=== PATIENT | male | born 1950 | race Caucasian/White ===

== ENCOUNTER 2019-01-12 13:40 | Inpatient (IN) ==
[2019-01-12] MEDS ORDERED: *HR* Ticagrelor 90 MG TABLET PO ONE (13:44)
--- NOTE | 2019-01-12 13:44 | Emergency Department Note ---
Disposition Clinical Impression: STEMI (ST elevation myocardial infarction) Qualifiers: Involved coronary artery: unspecified coronary artery Qualified Code(s): I21.3 - ST elevation (STEMI) myocardial infarction of unspecified site Disposition: Admitted As Inpatient Condition: Good Time of Disposition: 14:09 (Dr. Seymour accepted; taken to assistant laboratory director) Chest Pain HPI - General Chief Complaint: ED Chest Pain Stated Complaint: stemi alert Time Seen by Provider: 01/12/19 13:44 Source: patient Mode of arrival: ambulatory Limitations: no limitations Vital Signs Reviewed: Yes Nursing Notes Reviewed: Yes - History of Present Illness HPI Narrative: Patient is a 68-year-old male with past medical history of hypertension, kidney stones. Presents today due to STEMI. We received a prehospital EKG that showed inferior STEMI criteria. STEMI alert was called at approximately 13:25 before patient came to the ED. Upon arrival, patient states that he started having chest pain while walking about an hour ago. He describes as a pressure in the center of his chest associated with some mild shortness of breath. Walking made it worse. Denies any nausea, vomiting, sweating or fevers, abdominal pain. Denies any history of any previous MS or stent placement. He received 4 baby aspirin prior to arrival in 4 mg of morphine. Currently rates his pain a 4 or 5 out of 10. It was a 10 out of 10 prior to receiving morphine. - Related Data Previous Rx's Medication Instructions Recorded Clindamycin [Cleocin] 300 mg PO Q8HR #6 capsule 07/07/15 OxyCODONE Immed Rel [Roxicodone 5 5 - 10 mg PO Q6HR PRN #30 tablet 07/07/15 MG] Allergies Allergy/AdvReac Type Severity Reaction Status Date / Time No Known Allergies Allergy Unverified 07/06/15 14:23 All systems ED: reviewed and negative except as stated. Constitutional: Denies: fever Cardiovascular: Reports: chest pain Respiratory: Reports: dyspnea. Denies: cough, sputum production Gastrointestinal: Denies: abdominal pain, nausea Genitourinary: Denies: urgency, dysuria Integumentary: Denies: rash Chest Pain PMH - Past Medical History Medical history: Reports: hypertension, kidney stones Psychiatric history: Reports: no psych history - Social History Smoking Status: Never smoker Alcohol use: Reports: none Drug use: Reports: none Physical Exam - General Limitations: no limitations General appearance: alert, in no apparent distress - Head Head exam: atraumatic, normocephalic, normal inspection - Eye Eye exam: Present: normal appearance, PERRL, EOMI - ENT ENT exam: normal exam, normal oropharynx, mucous membranes moist - Neck Neck exam: Present: normal inspection, full ROM, trachea midline - Chest Chest inspection: Present: normal inspection, symmetric chest wall rise - Respiratory Respiratory exam: Present: normal lung sounds bilaterally. Absent: respiratory distress, wheezes, accessory muscle use - Cardiovascular Cardiovascular exam: Present: regular rate, normal rhythm, normal heart sounds - Abdominal Exam Abdominal exam: Present: soft, Non-Tender. Absent: tenderness, distention, guarding, rebound, rigidity - Extremities Exam Extremities exam: Present: normal inspection, full ROM. Absent: tenderness, pedal edema - Neurological Exam Neurological exam: Present: alert, oriented X3 - Psychiatric Psychiatric exam: Present: normal affect, normal mood - Skin Skin exam: Present: warm, dry, intact, normal color Course Course Narrative: Patient arrived in no acute distress. He is having some discomfort rated a 5 out of 10. We will give patient that now. He already received 4 baby aspirin prior to arrival. I spoke with Dr. Seymour, chute operator on-call prior to patient arrival, discussed inferior stemi seen on EKG. He requested brilinta and heparin bolus. Senior Economist was activated prior to patient arriving. Patient is currently stable on arrival. Pressure stable. Placed on pads and monitoring. We will avoid any nitroglycerin due to inferior STEMI. Currently waiting for Senior Economist to coming to patient. Of note, patient states that he was scheduled for procedure tomorrow for possible kidney stone removal. This will need to be discussed by admitting team once he is admitted for further managemen t. Vital Signs Temperature 97.9 F 01/12/19 13:46 Pulse Rate 84 01/12/19 13:46 Respiratory Rate 16 01/12/19 13:46 Blood Pressure 132/96 01/12/19 13:46 O2 Sat by Pulse Oximetry 96 01/12/19 13:46 Temperature 97.9 F 01/12/19 13:52 Pulse Rate 73 01/12/19 14:04 Respiratory Rate 16 01/12/19 14:04 Blood Pressure 126/87 01/12/19 14:04 O2 Sat by Pulse Oximetry 99 01/12/19 14:04 Oxygen Delivery Oxygen Delivery Room Air Chest Pain - MDM Narrative Medical decision making narrative: Patient arrived in no acute distress. He is having some discomfort rated a 5 out of 10. We will give patient that now. He already received 4 baby aspirin prior to arrival. I spoke with Dr. Seymour, chute operator on-call prior to patient arrival, discussed inferior stemi seen on EKG. He requested brilinta and heparin bolus. Senior Economist was activated prior to patient arriving. Patient is currently stable on arrival. Pressure stable. Placed on pads and m onitoring. We will avoid any nitroglycerin due to inferior STEMI. Currently waiting for Senior Economist to coming to patient. Of note, patient states that he was scheduled for procedure tomorrow for possible kidney stone removal. This will need to be discussed by admitting team once he is admitted for further management. - Medical Records Medical records reviewed: Yes I reviewed the patient's medical records. - Lab Data Lab results reviewed: Yes I reviewed the patient's lab results. Result diagrams: 01/12/19 13:45 01/12/19 13:45 Lab Results 01/12/19 Range/Units 13:45 WBC 6.8 (4.3-11.1) K/mcL RBC 5.38 (4.19-5.50) M/mcL Hgb 15.6 (12.9-16.9) g/dL Hct 47.4 (37.5-50.1) % MCV 88.1 (83.0-100.0) fL MCH 29.0 (28.0-33.3) pg MCHC 32.9 (31.6-35.5) g/dL RDW 13.4 (11.5-14.5) % Plt Count 185 (140-400) K/mcL MPV 9.6 (9.4-12.4) fL Immature Gran % 0.3 (0-4) % Seg Neutrophils % 42.6 % Lymphocytes % 39.5 % Monocytes % 11.6 % Eosinophils % 5.0 % Basophils % 1.0 % Neutrophils # 2.9 (1.6-8.9) K/mcL Lymphocytes # 2.7 (0.6-4.6) K/mcL Monocytes # 0.8 (0.0-1.3) K/mcL Eosinophils # 0.3 (0.0-0.6) K/mcL Basophils # 0.1 (0.0-0.2) K/mcL - Radiology Data Radiology results reviewed: Yes I reviewed the patient's radiology results. - EKG Data EKG attestation: Yes I reviewed and interpreted this EKG. EKG results narrative: Prehospital EKG. 01/12/2019 at 13:18. Sinus rhythm. Rate 86. RI 0.[address] elevation in 2, 3, aVF with reciprocal depressions in 1, aVL. STEMI, inferior. EKG #1 and ED. 01/12/2019 at 13:46. Sinus rhythm. Rate 91. RI 180. QS 1:15. QTc 450. ST elevation in 2, 3, aVF with ST depression in lead 1, aVL. STEMI criteria, inferior STEMI. Critical Care Time Critical Care Time: Yes Total Critical Care Time: 30 Attestation: Critical care time 30 minutes managing patient's STEMI. Attestation Statement - Attestation Attestation: Patient was seen with resident physician. I reviewed the history, physical, assessment and plan, and agree with the findings. I also personally evaluated this patient and had [id number] time with this patient. 68-year-old male presents to the emergency department with a STEMI. STEMI was called based on prehospital EKG done via EMS. Showed an inferior infarct. Upon arrival the patient stated that an hour so ago he developed chest pain. He has history of chest pain stents or cardiac issues. Pain developed as a pressure in the middle of his chest while walking. Walking made it worse resting relieved a little bit. He said it was a 10 out of 10. EMSs arrival. He received 4 aspirin and 4 mg of morphine which she said made his pain a 4-5 out of 10. He still having some pain no diaphoresis no sweating no nausea or vomiting. Review of systems as above remainder negative. Physical exam vital signs initially were stable. ENT is unremarkable. Heart regular rhythm and rate. Lungs clear. Abdomen soft nontender. Extremities unremarkable. Neurologically intact. Skin no rashes. Psych normal. ED course. Initial EKG from EMS showed STEMI. Repeat EKGs showed what appeared to be an evolving STEMI with more ST segment elevation in the inferior leads. We contacted interventional cardiology prior to the patient's arrival. Upon arrival he was given heparin and brilenta. Appropriate IVs were placed. And the patient was prepared for the Senior Economist. He went to the Senior Economist shortly thereafter for definitive management of his STEMI. Critical care time for this case was 30 minutes. I agree with the resident physician assessment and plan.
[2019-01-12] MEDS ORDERED: *HR* FentaNYL (PF) 100 MCG/2 ML VIAL IVP ONE (13:45)
[2019-01-12] MEDS ORDERED: Heparin 1,000 UNITS/500 mL 500 ML ONE ×2 (13:45→15:39)
[2019-01-12] MEDS ORDERED: Nitroglycerin 1,000 MCG/10 ML VIAL IV ONE (13:45)
[2019-01-12] MEDS ORDERED: *HR* Heparin 10,000 UNIT/10 ML VIAL ONE (13:45)
[2019-01-12] MEDS ORDERED: 0.9 % Sodium Chloride 1,000 ML ONE ×2 (13:45→13:46)
[2019-01-12] MEDS ORDERED: ISOVUE-370 100 ML INFUS..BTL ONE ×3 (13:46→15:58)
[2019-01-12] MEDS ORDERED: *HR* Heparin 5,000 UNIT/ML VIAL IVP ONE (13:49)
[2019-01-12] MEDS ORDERED: *HR* Heparin 5,000 UNIT/ML VIAL IVP PRN ×2 (13:49)
[2019-01-12] MEDS ORDERED: Verapamil 5 MG/2 ML VIAL ONE (13:54)
[2019-01-12 14:00] LABS: Basophils # 0.1 K/mcL (0.0-0.2); Eosinophils # 0.3 K/mcL (0.0-0.6); Hematocrit 47.4 % (37.5-50.1); Hemoglobin 15.6 g/dL (12.9-16.9); Immature Granulocytes % 0.3 % (0-4); Lymphocytes # 2.7 K/mcL (0.6-4.6); Lymphocytes % 39.5 %; Mean Corpuscular HGB Conc 32.9 g/dL (31.6-35.5); Mean Corpuscular Volume 88.1 fL (83.0-100.0); Mean Platelet Volume 9.6 fL (9.4-12.4); Monocytes # 0.8 K/mcL (0.0-1.3); Monocytes % 11.6 %; Neutrophils # 2.9 K/mcL (1.6-8.9); Platelet Count 185 K/mcL (140-400); Red Blood Count 5.38 M/mcL (4.19-5.50); Red Cell Distribution Width 13.4 % (11.5-14.5); Segmented Neutrophils % 42.6 %
[2019-01-12] MEDS ORDERED: Heparin 25,000 UNIT/250 ML D5W 25,000 UNIT/250 ML IV.SOLN IVC SCH (14:00)
[2019-01-12 14:09] LABS: Activated Partial Thrombo Time 27.7 Seconds (26.0-36.0)
--- NOTE | 2019-01-12 14:13 | Pre-Sedation Evaluation ---
Pre-sedation evaluation - Pre-sedation checklist Date of procedure: 01/12/19 Procedure: [facility] Recent Vitals: Last Vital Signs Temp 97.9 F 01/12/19 13:52 Pulse 73 01/12/19 14:07 Resp 16 01/12/19 14:07 BP 105/77 01/12/19 14:07 Pulse Ox 99 01/12/19 14:11 H&P (including ROS) documented in medical record: Yes Previous reaction to sedatives/anesthetics: Unknown Dietary Status: unknown Airway Assessment: Patient can open mouth completely, TMJ function normal ASA Classification *see protocol: CLASS IV-Severe systemic disease/constant threat to pt's life, [id number] to any of the above to indicate emergent Plan of Care: Pt appropriate candidate for procedure/moderate/conscious sedation, Risks/benefits of procedure/sedation discussed w/ patient/family, If not NPO; Risk of intake outweiged by necessity to perform procedure Cardiac Registry (Cardio Only) - Functional Capacity Functional Capacity: >=4 METS with symptoms - Clincal Frailty Scale Clinical Frailty Scale: Managing Well
[2019-01-12] MEDS ORDERED: Ondansetron 4 MG/2 ML VIAL IVP PRN (14:14)
[2019-01-12] MEDS ORDERED: *HR* Morphine 2 MG/ML SYRINGE IVP PRN (14:14)
--- NOTE | 2019-01-12 14:14 | Cardiology History & Physical ---
Date of Encounter: 01/13/19 Time of Encounter: 14:00 Assessment and Plan (1) STEMI (ST elevation myocardial infarction) Current Visit: Yes Status: Acute A/R/B of emergent [facility] dw patient. Pt aware and agreeable with proceeding understanding 1% chance of recurrent PA//CVA/CABG/ADAN/bleeding. EF assessment will be completed. Aspirin, brilinta, heparin. Cardiac rehab. The assessment and plan as outlined above was discussed with the patient and/or family members who expressed understanding and agreement. All questions were answered. Qualifiers: Involved coronary artery: other inferior wall coronary artery Qualified Code(s): I21.19 - ST elevation (STEMI) myocardial infarction involving other coronary artery of inferior wall (2) Nephrolithiasis Current Visit: Yes Status: Acute will dw urology. The assessment and plan as outlined above was discussed with the patient and/or family members who expressed understanding and agreement. All questions were answered. History of Present Illness HPI: Mr. Palacio is a 68 year old male with no previous cardiac history here with retrosternal chest discomfort of ~1-2 hour duration not markedly improved with aspirin/NTG. EKG shows inferior current of injury. Also of note, he has a large nephrolithiasis and large left inguinal hernia with plans for operative management. Past Med Surg Social Fam HX - Past Medical History Medical history: hypertension, kidney stones Psychiatric history: no psych history - Past Surgical History Additional surgical history: Back surgery - Social History Smoking Status: Never smoker Smokeless Tobacco Status: No Alcohol use: none Drug use: none Medications and Allergies Aspirin [Lo-Dose Aspirin EC] 81 mg PO DAILY 01/12/19 [History] Lisinopril-HCTZ 10-12.5 [Prinzide 10-12.5] 1 each PO DAILY 01/12/19 [History] Triamcinolone Acetonide 15 gm TP DAILY PRN 01/12/19 [History] Allergy/AdvReac Type Severity Reaction Status Date / Time No Known Allergies Allergy Unverified 07/06/15 14:23 All Systems Review: The remainder of the systems were reviewed and are negative - Constitutional Constitutional: no chills, no fever(s) - EENT Eyes: no blurred vision, no loss of vision Nose, mouth and throat: no bleeding gums, no epistaxis - Cardiovascular Cardiovascular: chest pain at rest, chest pain with exertion - Respiratory Respiratory: no hemoptysis, no wheezing - Gastrointestinal Gastrointestinal: no hematemesis, no hematochezia - Genitourinary Genitourinary: no hematuria, no nocturia - Musculoskeletal Musculoskeletal: no muscle cramps, no muscle weakness - Integumentary Integumentary: no rash, no unusual bruising - Neurological Neurological: no syncope, no tingling - Psychiatric Psychiatric: no hallucinations, no panic attacks - Hematological/Lymphatic Hematologic/Lymphatic: no easy bleeding, no easy bruising Physical Examination Vital Signs, Last 4 Hours Temp Pulse Resp BP Pulse Ox 01/12/19 14:11 99 01/12/19 14:07 73 16 105/77 99 01/12/19 14:04 73 16 126/87 99 01/12/19 13:56 86 16 134/87 100 01/12/19 13:52 97.9 F 90 23 139/102 98 01/12/19 13:46 97.9 F 84 16 132/96 96 General: Conversant, Other (distressed) HEENT: Atraumatic Neck: No JVD Cardiac: Reg Rate and Rhythm Lungs: Normal Breath Sounds Neuro: Alert and responsive Abdomen: Soft Skin: No rashes noted on visualized skin Musculoskeletal: No Chest Wall Tenderness Extremities: No Edema Results 01/13/19 04:30 01/13/19 04:30 Lab Results 01/12/19 01/12/19 13:45 13:45 WBC 6.8 Hgb 15.6 Hct 47.4 Plt Count 185 INR 1.0 APTT 27.7 - EKG Interpretation EKG results cardiology: personally reviewed (inferior current on injury)
[2019-01-12] MEDS ORDERED: Ondansetron 4 MG/2 ML VIAL ONE (14:18)
[2019-01-12] MEDS ORDERED: *HR* Midazolam HCl 2 MG/2 ML VIAL ONE (14:18)
[2019-01-12] MEDS ORDERED: *HR* FentaNYL (PF) 100 MCG/2 ML VIAL ONE (14:18)
[2019-01-12 14:20] LABS: BUN/Creatinine Ratio 14 (6-26); Blood Urea Nitrogen 16 mg/dL (8-23); Calcium 9.9 mg/dL (8.6-10.3); Carbon Dioxide 31 mEq/L (23-29); Chloride 100 mEq/L (98-107); Glucose 104 mg/dL (70-105); Osmolality,Calculated 289 (280-300); Potassium 3.8 mEq/L (3.5-5.1); Sodium 139 mEq/L (136-145); eGFR For Non-African Americans > 60 (> 60)
[2019-01-12 14:21] LABS: Troponin I < 0.03 ng/mL (< 0.04)
[2019-01-12] MEDS ORDERED: Tirofiban 12.5 MG/250ML 12.5 MG/250 ML BAG ONE (14:35)
[2019-01-12] MEDS ORDERED: *HR* Adenosine 6 MG/2 ML VIAL IVP ONE (14:44)
[2019-01-12] MEDS ORDERED: *HR* HYDROcodone/Acet 5/325 mg TABLET PO PRN (16:24)
--- NOTE | 2019-01-12 16:32 | Event Note ---
Date of Encounter: 01/12/19 Time of Encounter: 16:30 - Cardiology Event Note Inferior STEMI with occluded large RCA distal, with very heavy thrombus burden in the distal RCA into the PLB/PDA. PTCA of RCA with IC alteplase. Unable to pass aspiration catheter, upsized to transradial 7F AR2 guide and made numerous passes into the thrombus aspirating a large amount of white thrombus followed by red thrombus. There was mild residual disease in the PDA/PLB at this point, so proceeded to stent distal RCA with VENUS just to the PLB/PDA bifurcation with good result. 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
--- NOTE | 2019-01-12 16:47 | Invasive Diagnostic Lab Proc ---
Name: Hector Palacio Date of Study: 01/12/2019 Date: 1950 Ht: 72.0in Medical Record#: [id number] Age: 68 Wt: 214.95lb Gender: Male BSA: 2.2 Order #: [id number] BMI: 29.11 Physicians Procedure Physician: Andre Seymour MD, [facility] Referring MD: Referring MD: Staff Name Position Time In Dominique Duránci RN Monitor 02:10 PM Gregorio Montero RN Pharmacist Hospital 02:10 PM Angel Snow RN Pharmacist Hospital 02:10 PM Kathy, Nayeli RT (R) Scrub 02:11 PM Indications Indication STEMI Procedures Performed Procedure PRQ CARD REVASC ME 1 VSL L HRT ARTERY/VENTRICLE ANGIO Pre-Procedure Checklist Pt not NPO for procedure and MD aware. Blood Pressure: 128/87 Rhythm: NSR Plan of Care Patient will tolerate the procedure without complications. Adequate level of comfort will be maintained. Hemodynamics will remain stable Patient will recover from procedure without complications. Respiratory function will be maintained. Cardiac rhythm will remain stable. Patient temperature will be maintained. Patient and/or family have verbalized understanding of the procedure. Patient Education Chief Complaint/Reason for Test: PCI Developmental Category: Geriatric (65+ years) Developmentally Appropriate for Age: Yes Learning Barriers: None Education Needs: Procedure Education Method: Verbal Information Taught: PCI Educational Evaluation: Able to repeat information Intravenous Access Time IV Size Location DC'd Fluid/Drip Rate Units RN 18g 1 1/" Patent On Arrival Lt Antecubital 16 gauge Rt Antecubital Allergies No Known Allergies Vital Signs Time BP (mmHg) HR (bpm) O2 Sat. RR (bpm) LOC 128 / 87 76 99 % 16 02:11 PM / % 5 = Fully awake and oriented or at pre-proc level 02:11 PM / % 4 = Oriented but drowsy 02:26 PM / % 4 = Oriented but drowsy 02:41 PM / % 4 = Oriented but drowsy 02:56 PM / % 4 = Oriented but drowsy 03:12 PM / % 4 = Oriented but drowsy 03:27 PM / % 4 = Oriented but drowsy 03:42 PM / % 4 = Oriented but drowsy 03:57 PM / % 4 = Oriented but drowsy 02:14 PM 104 / 67 83 93 % 02:16 PM 114 / 78 83 91 % 17 02:19 PM 113 / 78 87 94 % 17 02:24 PM 107 / 69 86 88 % 14 02:29 PM 106 / 61 75 92 % 16 02:34 PM 104 / 71 81 93 % 18 02:39 PM 110 / 76 79 94 % 18 02:44 PM 111 / 75 77 95 % 16 02:49 PM 112 / 71 81 94 % 33 02:54 PM 112 / 78 80 96 % 16 02:59 PM 111 / 78 81 98 % 18 03:04 PM 117 / 80 80 97 % 16 03:09 PM 118 / 76 76 99 % 14 03:14 PM 116 / 78 79 97 % 18 03:19 PM 124 / 77 77 99 % 16 03:24 PM 118 / 82 80 98 % 16 03:29 PM 119 / 80 79 98 % 16 03:34 PM 116 / 83 80 98 % 18 03:39 PM 116 / 79 80 99 % 17 03:44 PM 115 / 80 72 98 % 15 03:49 PM 124 / 85 81 99 % 16 03:55 PM 127 / 79 77 97 % 15 04:01 PM 126 / 90 88 99 % 15 04:04 PM 134 / 91 83 100 % 16 04:10 PM 131 / 88 89 100 % 18 Procedural Medications Time Medication Dose Units Method Given By 02:11 PM Oxygen 2 L/min nasal cannula Angel Snow RN 02:19 PM Versed 2 mg Intravenous Angel Snow RN 02:19 PM Fentanyl 50 mcg Intravenous Angel Snow RN 02:19 PM Lidocaine 2% 0.5 ml Subcutaneous Andre Seymour MD, FACC 02:20 PM Zofran 8 mg Intravenous Angel Snow RN 02:21 PM Heparin 1000 units Nitroglycerin 200 mcg Verapamil 2.5 mg Intraarterial Andre Seymour MD, FACC 02:41 PM Aggrastat Bolus: 50 ml Intravenous Angel Snow RN 02:41 PM Aggrastat 12.5mg/250ml 18 ml Intravenous Angel Snow RN 02:55 PM Alteplase 2 mg Intracoronary Andre Seymour MD 03:10 PM Lidocaine 2% 10 ml Subcutaneous Andre Seymour MD, FACC 04:09 PM Nitroglycerin 200 mcg Intracoronary Andre Seymour MD ASA Classification: CLASS IV- Severe systemic that is constant threat to patient's life Pernell Score Preprocedure Postprocedure Activity 2- Moves 4 extremities sustained head lift Activity 2- Moves 4 extremities sustained head lift Circulation 2- SBP +/= 20 points of pre-anesthetic level Circulation 2- SBP +/= 20 points of pre-anesthetic level Consciousness 2- Awake and alert oriented x 3 Consciousness 2- Awake and alert oriented x 3 O2 Saturation 2- Able to maintain O2 satruation of 92% on room air O2 Saturation 2- Able to maintain O2 satruation of 92% on room air Respiratory 2- Able to deep breathe and cough well Respiratory 2- Able to deep breathe and cough well Total Score 10 Total Score 10 Contrast Agent: Isovue Diagnostic Contrast: 249 ml Total Contrast: 249 ml Fluoro Dose: 221 mGy Activated Clotting Time Time Seconds to Clot 02:41 PM 312 03:29 PM 325 Procedure Log Time Note Enter By 02:03 PM CathStat 02:10 PM Pt arrived to optical laboratory mechanic 1 at 14:10 kmavis 02:10 PM Maria Luz Durán RN Position: Monitor Time in: 14:10 [facility] 02:10 PM Gregroio Montero RN Position: Pharmacist Hospital Time in: 14:10 [facility] 02:11 PM Angel Snow RN Position: Pharmacist Hospital Time in: 14:10 [facility] 02:11 PM Nayeli Chavez RT (R) Position: Scrub Time in: 14:11 [facility] 02:11 PM Patient charges- Angio tray pack, Navilyst 3mm J, Pulse Oximetry and ACIST tubing and transducer [facility] 02:11 PM Case Delayed No [facility] 02:11 PM Time: 14:11 Oxygen on at 2 L/min per nasal cannula by Angel Snow RN [facility] 02:11 PM Time: 14:11 Patient comfortable and pain free: Yes avis 02:11 PM Time: 14:11LOC: 5 = Fully awake and oriented or at pre-proc level kmavis 02:14 PM Vitals capture started with the following parameters, Patient=Adult, Interval=5 min, Initial Abcixgdf=177 mmHg, Deflation Rate=3 mmHg, Cuff placed on Right Arm 02:14 PM HR=83 bpm, CFRG=462/67 mmhg, SpO2=93 % 02:15 PM NIBP STAT measurement started. 02:16 PM HR=83 bpm, SZJE=147/78 mmhg, SpO2=91 %, Resp=17 B/min 02:18 PM Hair removed from procedure site in procedure lab using clippers. Right wrist and Right groin prepped with Chloraprep by Gregorio Montero RN, then patient was draped. Skin intact. kmavis 02:18 PM Physician arrived 14:18 kmavis :18 PM Meet and greuzair completed kmavis :18 PM Sign in performed according to hospital policy. Informed consent was obtained. kmavis 02:18 PM Procedure start 14:18 kmavis : PM Recorded ECG: HR=85 Condition=Condition 1 02: PM Time: 14: Versed 2 mg Intravenous Given by Angel Snow RN kmavis PM Time: 14: Fentanyl 50 mcg Intravenous Given by Angel Snow RN kmavis : PM HR=87 bpm, PZKO=082/78 mmhg, SpO2=94.0 %, Resp=17 B/min : PM Time out was performed according to hospital policy. Conscious sedation and anesthesia was achieved (see medication log with in this report above) kmavis :19 PM Critical cardiac patient with acute ME was brought emergently to the cardiac warehouse laborer for immediate coronary angiography and intervention if clinically indicated. kmavis 02:20 PM Time: 14: 0.5 ml Lidocaine 2% to right radial Subcutaneous Given by Andre Seymour MD, FACC kmavis 02:20 PM 6Fr JR 4 Runway guide catheter was used to cannulate the PCI vessel successfully. reused? No kmavis 02:20 PM .014 [place] 190cm guide wire across target lesion- successful. reused? No kmavis 02:20 PM Inflation device was opened. kmavis : PM Time: 14:20 Zofran 8 mg Intravenous Given by Angel Snow RN kmavis : PM Access obtained by percutaneous puncture. 6Fr 10cm Terumo Glidesheath sheath placed in right Radial artery. [id number] kmavis 02:21 PM Time: 14:21 Patient given 1000 units Heparin, 200 mcg Nitroglycerin, and 2.5 mg Verapamil Intraarterial by Andre Seymour MD, FACC. This is given to reduce risk of vessel spasm and thrombosis. kmavis 02:23 PM RCA angiography performed in multiple views. kmavis 02:24 PM HR=86 bpm, KMNG=005/69 mmhg, SpO2=88.0 %, Resp=14 B/min 02:25 PM Recorded Pressure: Ao, HR=84, Condition=Condition 1 (Aorta) Ao 89/69/78 02:26 PM 2.25 mm x 12 mm Emerge Monorail balloon across target lesion- successful. reused? No kmavis 02:26 PM Time: 14:11LOC: 4 = Oriented but drowsy kmavis 02:26 PM Time: 14:11 Patient comfortable and pain free: Yes kmavis 02:28 PM Balloon inflated @ 8 amalia for 13 seconds kmavis 02:28 PM Balloon inflated @ 8 amalia for 8 seconds kmavis 02:29 PM PCI lesion in Distal RCA. Pre Stenosis: 100 Pre MATTHEW Flow: kmavis 02:29 PM Right Coronary, Right Posterior Descending Arteries with Right Posterolateral and Acute Marginal branches with 100 % stenosis. If graft is supplying this area, 0 % stenosis kmavis 02:29 PM HR=75 bpm, AWJJ=016/61 mmhg, SpO2=92.0 %, Resp=16 B/min 02:30 PM Balloon catheter removed intact. kmavis 02:31 PM Second wire inserted into RCA .014 PT Graphix 182cm guide wire across target lesion- successful. reused? No kmavis 02:33 PM Recorded Pressure: Ao, HR=79, Condition=Condition 1 (Aorta) Ao 88/68/78 02:34 PM HR=81 bpm, HOIY=622/71 mmhg, SpO2=93.0 %, Resp=18 B/min 02:38 PM Pronto V4 6 Fr. extraction catheter inserted, could not be delivered kmavis 02:39 PM HR=79 bpm, XCEE=415/76 mmhg, SpO2=94.0 %, Resp=18 B/min 02:39 PM Pronto V4 6 Fr. extraction catheter removed and intact. kmavis 02:41 PM Time: 14:41 Aggrastat Bolus: 50 ml Intravenous Given by Angel Snow RN [facility] pump avis 02:41 PM Time: 14:41 Aggrastat 12.5mg/250ml 18 ml Intravenous Given by Angel Snow RN [facility] pump kmavis 02:41 PM Time: 14:26LOC: 4 = Oriented but drowsy kmavis 02:41 PM Time: 14:26 Patient comfortable and pain free: Yes kmavis 02:42 PM At 14:41 the ACT was 312 seconds. kmavis 02:42 PM ASA Class CLASS IV- Severe systemic that is constant threat to patient's life kmavis 02:44 PM HR=77 bpm, VVNA=271/75 mmhg, SpO2=95.0 %, Resp=16 B/min 02:45 PM 3.0 mm x 20 mm Emerge Monorail balloon across target lesion- successful. reused? No kmavis 02:45 PM Balloon inflated @ 14 amalia for 14 seconds kmavis 02:46 PM Balloon catheter removed intact. kmavis 02:47 PM Recorded Pressure: Ao, HR=77, Condition=Condition 1 (Aorta) Ao 102/76/89 02:49 PM HR=81 bpm, OZUI=834/71 mmhg, SpO2=94.0 %, Resp=33 B/min 02:54 PM HR=80 bpm, CPRV=609/78 mmhg, SpO2=96.0 %, Resp=16 B/min 02:56 PM Time: 14:55 Alteplase 2 mg Intracoronary Given by Andre Seymour MD kmavis 02:56 PM Time: 14:41 Patient comfortable and pain free: Yes kmavis 02:56 PM Time: 14:41LOC: 4 = Oriented but drowsy kmavis 02:59 PM Guide wire removed intact x 2. kmavis 02:59 PM HR=81 bpm, AWUX=272/78 mmhg, SpO2=98.0 %, Resp=18 B/min 03:01 PM Guide catheter removed intact. kmavis 03:01 PM 5Fr TIG catheter inserted over the wire [facility] kmavis 03:02 PM LCA angiography performed in multiple views. kmavis 03:02 PM Recorded Pressure: Ao, HR=79, Condition=Condition 1 (Aorta) Ao 104/80/93 03:04 PM HR=80 bpm, WGNZ=873/80 mmhg, SpO2=97.0 %, Resp=16 B/min 03:05 PM Recorded Pressure: Ao, HR=82, Condition=Condition 1 (Aorta) Ao 112/85/99 03:09 PM HR=76 bpm, PVOP=916/76 mmhg, SpO2=99.0 %, Resp=14 B/min 03:10 PM Time: 15:10 10 ml Lidocaine 2% to right groin Subcutaneous Given by Andre Seymour MD, FACC kmavis 03:11 PM TIG Catheter removed kmavis 03:12 PM Time: 14:56LOC: 4 = Oriented but drowsy kmavis 03:12 PM Time: 14:56 Patient comfortable and pain free: Yes kmavis 03:12 PM 6Fr WRP Runway guide catheter was used to cannulate the PCI vessel successfully. reused? No kmavis 03:12 PM Recorded Pressure: LV, HR=77, Condition=Condition 1 (Left Ventricle) LV 110/17/24 03:13 PM Recorded Pressure: LV, Ao, HR=76, Condition=Condition 1 (Left Ventricle) LV 108/27/31, (Aorta) Ao 118/79/98 03:13 PM Catheter crossed the aortic valve and was selectively placed in the left ventricle. Pressures recorded on pullback for left heart catheterization. kmavis 03:14 PM RCA angiography performed in multiple views. kmavis 03:14 PM HR=79 bpm, ZAWW=752/78 mmhg, SpO2=97.0 %, Resp=18 B/min 03:19 PM HR=77 bpm, FTRB=314/77 mmhg, SpO2=99.0 %, Resp=16 B/min 03:19 PM Sheath exchanged for a 6/7 Fr 10 cm TerumDirecta Plus Glidesheath sheath [id number] kmavis 03:21 PM 7Fr AR2 Mach 1 guide catheter was used to cannulate the PCI vessel successfully. reused? No kmavis 03:22 PM Recorded Pressure: Ao, HR=78, Condition=Condition 1 (Aorta) Ao 115/78/96 03:24 PM HR=80 bpm, EZXQ=360/82 mmhg, SpO2=98.0 %, Resp=16 B/min 03:25 PM Pronto V4 6 Fr. extraction catheter re-inserted. kmavis 03:27 PM Time: 15:12 Patient comfortable and pain free: Yes kmavis 03:27 PM Time: 15:12LOC: 4 = Oriented but drowsy kmavis 03:27 PM Recorded Pressure: Ao, HR=80, Condition=Condition 1 (Aorta) Ao 104/82/93 03:29 PM Pronto V4 thrombectomy pass # 1 for 25 ml total fluid. kmavis 03:29 PM At 15:29 the ACT was 325 seconds. kmavis 03:29 PM HR=79 bpm, CTFJ=662/80 mmhg, SpO2=98.0 %, Resp=16 B/min 03:30 PM Pronto V4 removed kmavis 03:30 PM Pronto V4 re-inserted. kmavis 03:31 PM Pronto V4 thrombectomy pass # 2 for 20 ml total fluid. kmavis 03:33 PM Pronto V4 removed kmavis 03:33 PM Pronto V4 re-inserted kmavis 03:34 PM Pronto V4 removed. kmavis 03:34 PM Pronto v4 thrombectomy pass # 3 for 25 ml total fluid. kmavis 03:34 PM HR=80 bpm, BYNS=171/83 mmhg, SpO2=98.0 %, Resp=18 B/min 03:38 PM Multiple passes completed per Dr. Seymour for a total of 10. kmavis 03:39 PM HR=80 bpm, NXKD=276/79 mmhg, SpO2=99.0 %, Resp=17 B/min 03:42 PM Time: 15:27LOC: 4 = Oriented but drowsy kmavis 03:42 PM Time: 15:27 Patient comfortable and pain free: Yes kmavis 03:44 PM HR=72 bpm, GVHG=903/80 mmhg, SpO2=98.0 %, Resp=15 B/min 03:45 PM Pronto V4 removed. kmavis 03:45 PM Recorded Pressure: Ao, HR=76, Condition=Condition 1 (Aorta) Ao 108/72/90 03:46 PM Lesion found in Mid LAD. Pre Stenosis: 40 Pre MATTHEW Flow: kmavis 03:47 PM Mid/Distal Left Anterior Descending Coronary Artery and diagonal branches with 40% stenosis. If graft is supplying this area, 0 % stenosis kmavis 03:[address] Tate [facility] 03:49 PM HR=81 bpm, UXYM=820/85 mmhg, SpO2=99.0 %, Resp=16 B/min 03:[address] Seymour speaking with Dr. Tate on the phone at this time kmavis 03:53 PM Physician reviewing films avis 03:55 PM HR=77 bpm, YCIY=960/79 mmhg, SpO2=97.0 %, Resp=15 B/min 03:55 PM 3.0mm x 24mm Synergy drug-eluting stent across target lesion- successful Lot #[id number] kmavis 03:57 PM Time: 15:42LOC: 4 = Oriented but drowsy kmavis 03:57 PM Time: 15:42 Patient comfortable and pain free: Yes kmavis 03:58 PM Stent deployed @ 18 amalia for 18 seconds kmavis 03:58 PM Stent delivery system removed intact. kmavis 04:01 PM HR=88 bpm, WGPL=717/90 mmhg, SpO2=99.0 %, Resp=15 B/min 04:01 PM 3.0mm x 16mm Synergy drug-eluting stent across target lesion- successful Lot #[id number] kmavis 04:01 PM Recorded Pressure: Ao, HR=89, Condition=Condition 1 (Aorta) Ao 127/88/107 04:03 PM Stent deployed @ 16 amalia for 13 seconds kmavis 04:03 PM Stent delivery system removed intact. kmavis 04:04 PM 4.0 mm x 20mm NC Trek Rx balloon across target lesion- successful. reused? No kmavis 04:04 PM HR=83 bpm, OVDI=014/91 mmhg, NaQ3=578.0 %, Resp=16 B/min 04:05 PM Balloon inflated @ 14 amalia for 13 seconds kmavis 04:06 PM Balloon inflated @ 16 amalia for 13 seconds kmavis 04:08 PM Guide wire removed intact. kmavis 04:08 PM Balloon catheter removed intact. kmavis 04:09 PM Time: 16:09 Nitroglycerin 200 mcg Intracoronary Given by Andre Seymuor MD kmavis 04:10 PM HR=89 bpm, DVQU=137/88 mmhg, WyO7=119.0 %, Resp=18 B/min 04:10 PM Procedure completed at 16:10 01/12/2019 kmavis 04:10 PM Did you address MATTHEW flow and Dominance? Yes kmavis 04:12 PM Sign out completed: Radiation Dose 3664.36 mGy, 220.77 Gy/cm2 Fluoro Time: 25.4 Isovue 370 - 200ml contrast 249 ml given by Andre Seymour MD, FACC. Complications: None. The patient was discharged out of the warehouse laborer in stable condition. Sedation minutes 120. Cardiac Rehab Consult needed: Yes. Confirmed administered medications: Yes kmavis 04:12 PM Time: 15:57LOC: 4 = Oriented but drowsy kmavis 04:12 PM Time: 15:57 Patient comfortable and pain free: Yes kmavis 04:12 PM Isovue 370 - 100ml,4 Bottle(s) used. kmavis 04:12 PM Arterial sheath pulled, Vasc Band closure device used and was Successful S/N. kmavis 04:14 PM 14 ml air in Vasc Band. kmavis 04:15 PM Estimated Blood Loss: greater than 50cc kmavis 04:15 PM Post ECG NSR kmavis 04:15 PM Post Blood Pressure 131/88 kmavis 04:15 PM Information taught Cardiac Cath, PCI, and Vasc Band kmavis 04:15 PM Education needs Procedure, Plan of Care, and Disease Process kmavis 04:15 PM Learning barriers :None kmavis 04:15 PM Education Methods Verbal kmavis 04:16 PM Education evaluation Able to repeat information kmavis 04:16 PM Site status No bleeding/hematoma - Rt Arm as reported by Sites, Nayeli RT (R) at 16:16 kmavis 04:16 PM Opsite applied kmavis 04:17 PM Delay to floor No kmavis 04:17 PM Family placed in consult room. kmavis 04:17 PM Complications: None kmavis 04:23 PM Report given to Simi ENRIQUEZ Pt taken to ICU. 16:22 kmavis 04:23 PM Plavix, Effient or Brilinta given Yes kmavis 04:23 PM Patient out of room: 16:23 kmavis 04:[address] Seymour states to call pharmacy and have 40mg of crestor given and have patient started on heparin drip. Called pharmacy and pharmacist states she will bring up medication. Notified Simi in ICU. kmavis Complications Complication None None Hemodynamics Pressures Site Systolic/A Wave Diastolic/V Wave Mean AO 89 69 78 AO 88 68 78 AO 102 76 89 AO 104 80 93 AO 112 85 99 LV 110 17 24 LV 108 27 31 AO 118 79 98 AO 115 78 96 AO 104 82 93 AO 108 72 90 AO 127 88 107 Post Procedure Information Blood Pressure: 131/88 mmHg Rhythm: NSR Post procedural instructions were given Closure Device Time Device Success/Fail 01/12/2019 4:26:00 PM Mechanical Compression Successful Site Checks Time Location Status Staff Sheath In? Note 04:16 PM Rt Arm No bleeding/hematoma Sites, Nayeli RT (R) Pulses Updated by Maria Luz Durán RN on 01/12/2019 4:37:28 PM electronically signed on 01/12/2019 4:38:08 PM with status of Final
[2019-01-12] MEDS: Tirofiban 12.5 MG/250ML 12.5 MG/250 ML BAG IVC SCH (17:35)
[2019-01-12] MEDS: Heparin 25,000 UNIT/250 ML D5W 25,000 UNIT/250 ML IV.SOLN IVC SCH (19:36)
[2019-01-12] MEDS: *HR* Promethazine 25 MG/ML VIAL IVP PRN (20:32)
[2019-01-12] MEDS: *HR* Ticagrelor 90 MG TABLET PO SCH (21:04)
[2019-01-12] MEDS: Ondansetron 4 MG/2 ML VIAL IVP PRN (23:25)
[2019-01-13] MEDS: Tirofiban 12.5 MG/250ML 12.5 MG/250 ML BAG IVC SCH (00:38)
[2019-01-13] MEDS: *HR* Promethazine 25 MG/ML VIAL IVP PRN ×2 (01:49→07:55)
[2019-01-13 04:40] LABS: Basophils % 0.2 %; Eosinophils % 0.1 %; Hematocrit 42.7 % (37.5-50.1); Immature Granulocytes % 0.4 % (0-4); Lymphocytes # 0.8 K/mcL (0.6-4.6); Lymphocytes % 8.5 %; Mean Corpuscular HGB Conc 32.3 g/dL (31.6-35.5); Mean Corpuscular Hemoglobin 28.8 pg (28.0-33.3); Mean Corpuscular Volume 89.1 fL (83.0-100.0); Mean Platelet Volume 9.6 fL (9.4-12.4); Monocytes # 0.5 K/mcL (0.0-1.3); Monocytes % 5.3 %; Neutrophils # 7.7 K/mcL (1.6-8.9); Platelet Count 162 K/mcL (140-400); Red Blood Count 4.79 M/mcL (4.19-5.50); Red Cell Distribution Width 13.4 % (11.5-14.5); Segmented Neutrophils % 85.5 %
[2019-01-13 04:44] LABS: Hemoglobin 13.8 g/dL (12.9-16.9)
[2019-01-13 04:59] LABS: BUN/Creatinine Ratio 15 (6-26); Blood Urea Nitrogen 15 mg/dL (8-23); Calcium 9.4 mg/dL (8.6-10.3); Carbon Dioxide 31 mEq/L (23-29); Chloride 101 mEq/L (98-107); Glucose 153 mg/dL (70-105); Osmolality,Calculated 290 (280-300); Potassium 4.4 mEq/L (3.5-5.1); Sodium 138 mEq/L (136-145); eGFR For Non-African Americans > 60 (> 60)
[2019-01-13] MEDS: *HR* Ticagrelor 90 MG TABLET PO SCH ×2 (07:55→20:46)
[2019-01-13] MEDS: Aspirin 81 MG TAB.CHEW PO SCH (07:55)
[2019-01-13] MEDS: Metoprolol XL (24 HR) Succ 25 MG TAB.ER.24H PO SCH (07:55)
--- NOTE | 2019-01-13 10:07 | Cardiology Progress Note ---
Date of Encounter: 01/13/19 Time of Encounter: 09:00 Assessment and Plan (1) STEMI (ST elevation myocardial infarction) Current Visit: Yes Status: Acute Per cardiology: -Admitted as acute inferior STEMI, s/p emergent LHC. -Prelim LHC report with 100% distal RCA with large thrombus burden. Attempted clot aspiration. PCTA and IC altelplase, and subsequent VENUS placement. -TTE pending. -Patient denies chest pain, reports nausea and vomiting (on zofran and phenergan). -On asa, brilita, heparin drip, BB, statin. -Right radial access site with ecchymosis note, no hematoma, 2+ radial pulse. -Discussed and reviewed with , will repat ECG this am. -Continue dual anti-platelet therapy uninterrupted for at least one year. -TTE. -Will leave in ICU for close observation. Qualifiers: Involved coronary artery: other inferior wall coronary artery Qualified Code(s): I21.19 - ST elevation (STEMI) myocardial infarction involving other coronary artery of inferior wall (2) Nephrolithiasis Current Visit: Yes Status: Acute Per cardiology: -Was discussed with urology by . Discussion w patient/family: The assessment and plan as outlined above was discussed with the patient and/or family members who expressed understanding and agreement. All questions were answered. Thank you for involving us in the care of your patient. Please call with any questions. Discussed and reviewed with . Subjective Principal diagnosis: STEMI Interval history: Patient seen and examined at bedside in ICU with family at bedside. Denies chest pain. Complains of nausea and vomiting overnight. Reports IV site is bothering him. Objective Vital Signs, Last 4 Hours Pulse Resp BP Pulse Ox 01/13/19 08:00 80 16 115/80 95 01/13/19 07:00 79 15 108/80 95 General: Conversant, Other (Somewhat lethargic. ) HEENT: Atraumatic, Normocephaly, Mucus Membranes Moist Neck: No JVD, Normal carotid pulses Cardiac: Reg Rate and Rhythm, Normal S1 and S2, No Murmur Lungs: Normal Breath Sounds, No Wheeze, Rales, Rhonchi Neuro: Alert and responsive, No focal deficits noted Abdomen: Soft, Non-Tender Skin: No rashes noted on visualized skin, Other (Right radial access site with ecchymosis noted, no hematoma. 2+ right radial pulse noted. ) Musculoskeletal: No Chest Wall Tenderness Extremities: No Clubbing, No Cyanosis, No Edema, Normal Pulses Results 01/13/19 04:30 01/13/19 04:30 Lab Results Impressions Chest X-Ray 01/12/19 13:44 IMPRESSION: No acute abnormality detected. D/ / Carlos Snyder MD / Carlos Snyder MD Interpreting Provider: Carlos Snyder MD Active Medications Acetaminophen (Tylenol) 650 mg PO Q6HR PRN PRN Reason: Mild Pain Stop: 07/14/19 16:25 Hydrocodone Bitart/Acetaminophen ([place] 5-325 Mg) 1 tab PO Q4HR PRN PRN Reason: Moderate Pain Stop: 07/14/19 16:25 Aspirin (Aspirin) 81 mg PO DAILY [facility] Stop: 07/15/19 09:01 Last Admin: 01/13/19 07:55 Dose: 81 mg Diphenhydramine HCl (Benadryl) 25 mg PO HS PRN PRN Reason: Insomnia Stop: 07/14/19 16:26 Heparin Sodium (Porcine) (Heparin) 4,000 unit IVP Q6HR PRN PRN Reason: SEE COMMENTS Stop: 07/14/19 13:50 Heparin Sodium (Porcine) (Heparin) 2,000 unit IVP Q6H PRN PRN Reason: SEE COMMENTS Stop: 07/14/19 13:50 Heparin Sodium/Dextrose (Heparin 25,000 Unit/250 Ml D5w) 25,000 unit in 250 mls @ 9.947 mls/hr IVC .Q24H AMILCAR; Protocol Stop: 01/14/19 05:00 Last Titration: 01/13/19 09:45 Dose: 0 unit/kg/hr, 0 mls/hr Metoprolol Succinate (Toprol Xl) 12.5 mg PO DAILY [facility] Stop: 07/15/19 09:01 Last Admin: 01/13/19 07:55 Dose: 12.5 mg Morphine Sulfate (Morphine Sulfate) 4 mg IVP Q3H PRN PRN Reason: Severe Pain (7-10) Stop: 07/14/19 14:15 Ondansetron HCl (Zofran) 8 mg IVP Q6HR PRN PRN Reason: Nausea And Vomiting Stop: 07/14/19 14:15 Last Admin: 01/12/19 23:25 Dose: 8 mg Promethazine HCl (Phenergan) 12.5 mg IVP Q6HR PRN PRN Reason: Nausea And Vomiting Stop: 07/14/19 20:19 Last Admin: 01/13/19 07:55 Dose: 12.5 mg Ticagrelor (Brilinta) 90 mg PO BID AMILCAR Stop: 07/14/19 21:01 Last Admin: 01/13/19 07:55 Dose: 90 mg Laboratory Tests 01/13/19 01/13/19 04:30 04:30 Hgb 13.8 D Creatinine 1.01 - Imaging and Cardiology Chest Xray: report reviewed Echo: pending - EKG Interpretation EKG results cardiology: other (Unable to review telemetry.) Consult Discharge Plan - Plan Referrals: Johnny Freitas MD [Primary Care Provider] -
[2019-01-13] MEDS: Ondansetron 4 MG/2 ML VIAL IVP PRN (14:55)
--- NOTE | 2019-01-13 17:18 | Urology - Consult Note ---
Date of Encounter: 01/13/19 Time of Encounter: 17:18 - Assessment and Plan (1) Nephrolithiasis Current Visit: Yes Status: Acute Assessment and plan: The percutaneous nephrolithotomy is obviously canceled tomorrow. Patient will r equire anticoagulation for at least 1 year. We discussed that the percutaneous nephrolithotomy cannot be performed without stopping anticoagulation. We will need to treat his large renal stone with a ureteroscopic stone extraction which can be done while on antiplatelet therapy. This will likely be a prolonged more extensive stone extraction due to the size of the stone. Because of his recent symptoms we will likely proceed with a ureteral stent placement during his hospitalization to reduce the discomfort from the stone. Some of his nausea may also be related to the obstruction from the stone. We will await cardiac clearance before proceeding with the stent placement. Urology CN:HPI Consult date: 01/13/19 History of present illness: Patient was scheduled for a percutaneous nephrolithotomy on January 14. Currently admitted as acute inferior STEMI, s/p emergent LHC and drug-eluting stent placement. Doing better and stable. He continues to have nausea. He admits to having increasing pain from the stone over the last few days/week. Past Med Surg Social Fam HX - Past Medical History Medical history: hypertension, kidney stones Psychiatric history: no psych history - Past Surgical History Additional surgical history: Back surgery - Social History Smoking Status: Never smoker Smokeless Tobacco Status: No Alcohol use: none Drug use: none Medications and Allergies Aspirin [Lo-Dose Aspirin EC] 81 mg PO DAILY 01/12/19 [History] Lisinopril-HCTZ 10-12.5 [Prinzide 10-12.5] 1 each PO DAILY 01/12/19 [History] Triamcinolone Acetonide 15 gm TP DAILY PRN 01/12/19 [History] Allergy/AdvReac Type Severity Reaction Status Date / Time No Known Allergies Allergy Unverified 07/06/15 14:23 Review of Systems - Constitutional no fever(s), no malaise - Gastrointestinal nausea - Genitourinary flank pain Exam Initial Vital Signs Temp Pulse Resp BP Pulse Ox 97.9 F 84 16 132/96 96 01/12/19 13:46 01/12/19 13:46 01/12/19 13:46 01/12/19 13:46 01/12/19 13:46 - General physical appearance Present: well developed, no distress - Abdomen Abdomen: Present: soft Urology Results - Labs 01/13/19 04:30 01/13/19 04:30 Abnormal lab results Heparin Anti-Xa, Unfract 0.98 IU/mL (0.30-0.70) H 01/13/19 07:55 Carbon Dioxide 31 mEq/L (23-29) H 01/13/19 04:30 Glucose 153 mg/dL (70-105) H 01/13/19 04:30 POC Glucose 103 mg/dL (70-99) H 01/12/19 16:38 Diabetes panel 01/13/19 Range/Units 04:30 Sodium 138 (136-145) mEq/L Potassium 4.4 (3.5-5.1) mEq/L Chloride 101 (98-107) mEq/L Carbon Dioxide 31 H (23-29) mEq/L BUN 15 (8-23) mg/dL Creatinine 1.01 (0.70-1.30) mg/dL Glucose 153 H (70-105) mg/dL Calcium 9.4 (8.6-10.3) mg/dL Calcium panel 01/13/19 Range/Units 04:30 Calcium 9.4 (8.6-10.3) mg/dL Pituitary panel 01/13/19 Range/Units 04:30 Sodium 138 (136-145) mEq/L Potassium 4.4 (3.5-5.1) mEq/L Chloride 101 (98-107) mEq/L Carbon Dioxide 31 H (23-29) mEq/L BUN 15 (8-23) mg/dL Creatinine 1.01 (0.70-1.30) mg/dL Glucose 153 H (70-105) mg/dL Calcium 9.4 (8.6-10.3) mg/dL Adrenal panel 01/13/19 Range/Units 04:30 Sodium 138 (136-145) mEq/L Potassium 4.4 (3.5-5.1) mEq/L Chloride 101 (98-107) mEq/L Carbon Dioxide 31 H (23-29) mEq/L BUN 15 (8-23) mg/dL Creatinine 1.01 (0.70-1.30) mg/dL Glucose 153 H (70-105) mg/dL Calcium 9.4 (8.6-10.3) mg/dL All other labs normal. Consult Discharge Plan - Plan Referrals: Johnny Freitas MD [Primary Care Provider] -
--- NOTE | 2019-01-13 17:27 | Event Note ---
Date of Encounter: 01/13/19 Time of Encounter: 17:[address] Brown on-call cardiology shared decision-making was made to transfer the patient with ICU monitoring at 2 N. Will be followed by cardiology tomorrow to continue the current Regimen of treatment patient was stable when he was transferred to [facility] [address]. with ICU monitoring.
[2019-01-14] MEDS: Acetaminophen 325 MG TABLET PO PRN ×2 (00:54→16:06)
[2019-01-14] MEDS: Heparin 25,000 UNIT/250 ML D5W 25,000 UNIT/250 ML IV.SOLN IVC SCH (02:15)
[2019-01-14] MEDS: *HR* Ticagrelor 90 MG TABLET PO SCH ×2 (09:57→20:04)
[2019-01-14] MEDS: Aspirin 81 MG TAB.CHEW PO SCH (09:57)
[2019-01-14] MEDS: Metoprolol XL (24 HR) Succ 25 MG TAB.ER.24H PO SCH (09:57)
--- NOTE | 2019-01-14 11:44 | Cardiology Progress Note ---
Date of Encounter: 01/14/19 Time of Encounter: 08:30 Assessment and Plan (1) STEMI (ST elevation myocardial infarction) Current Visit: Yes Status: Acute Per cardiology: -Admitted as acute inferior STEMI, s/p emergent LHC. -Prelim LHC report with 100% distal RCA with large thrombus burden. Attempted clot aspiration. PCTA and IC altelplase, and subsequent VENUS placement. -TTE with LVEF 60%, mild diastolic dysfunction, mild RV systolic dysfunction, mild TR, apical inferior and mid inferior marte hypokinetic. -Patient denies chest pain, reports nausea and vomiting (on zofran and phenergan). -On asa, brilita, BB, statin. -Right radial access site with ecchymosis note, no hematoma, 2+ radial pulse. -Continue dual anti-platelet therapy uninterrupted for at least one year. -Will continue to monitor. Qualifiers: Involved coronary artery: other inferior wall coronary artery Qualified Code(s): I21.19 - ST elevation (STEMI) myocardial infarction involving other coronary artery of inferior wall (2) Nephrolithiasis Current Visit: Yes Status: Acute Per cardiology: -Was discussed with urology by . (3) Preop cardiovascular exam Current Visit: Yes Status: Acute Per cardiology: -Preop risk stratification for urteroscopic stone extraction and stent placement. -Admitted as acute STEMI and was taken emergently to track laborer. -TTE with LVEF preserved, does have apical inferior and mid inferior wall hypokinesis. -Discussed and reviewed with , patient would be at acceptable, high risk for planned procedure. Continue dual anti-platelet therapy. -Discussed at length with patient and family by myself and , patient states he would like to hold off on procedure at this time. Encouraged patient to discuss with urology. Discussion w patient/family: The assessment and plan as outlined above was discussed with the patient and/or family members who expressed understanding and agreement. All questions were answered. Thank you for involving us in the care of your patient. Please call with any questions. Discussed and reviewed with . Subjective Principal diagnosis: STEMI Interval history: Patient reports he feels much better today. Denies chest pain. Reports nausea has lessened and was able to eat some breakfast this am. Objective Vital Signs, Last 4 Hours Pulse Resp BP Pulse Ox 01/14/19 07:49 73 18 121/86 96 General: Conversant, No Apparent Distress HEENT: Atraumatic, Normocephaly, Mucus Membranes Moist Neck: No JVD, Normal carotid pulses Cardiac: Reg Rate and Rhythm, Normal S1 and S2, No Murmur Lungs: Normal Breath Sounds, No Wheeze, Rales, Rhonchi Neuro: Alert and responsive, No focal deficits noted Abdomen: Soft, Non-Tender Skin: No rashes noted on visualized skin, Other (Right radial access site with ecchymosis noted, no hematoma. ) Musculoskeletal: No Chest Wall Tenderness Extremities: No Clubbing, No Cyanosis, No Edema, Normal Pulses Results 01/13/19 04:30 01/13/19 04:30 Active Medications Acetaminophen (Tylenol) 650 mg PO Q6HR PRN PRN Reason: Mild Pain Stop: 07/14/19 16:25 Last Admin: 01/14/19 00:54 Dose: 650 mg Hydrocodone Bitart/Acetaminophen ([place] 5-325 Mg) 1 tab PO Q4HR PRN PRN Reason: Moderate Pain Stop: 07/14/19 16:25 Last Admin: 01/14/19 05:13 Dose: 1 tab Aspirin (Aspirin) 81 mg PO DAILY [facility] Stop: 07/15/19 09:01 Last Admin: 01/14/19 09:57 Dose: 81 mg Calcium Carbonate (Tums) 1,000 mg PO Q4HR PRN; Protocol PRN Reason: Heartburn Stop: 07/15/19 16:45 Last Admin: 01/13/19 19:43 Dose: 1,000 mg Diphenhydramine HCl (Benadryl) 25 mg PO HS PRN PRN Reason: Insomnia Stop: 07/14/19 16:26 Metoprolol Succinate (Toprol Xl) 12.5 mg PO DAILY [facility] Stop: 07/15/19 09:01 Last Admin: 01/14/19 09:57 Dose: 12.5 mg Morphine Sulfate (Morphine Sulfate) 4 mg IVP Q3H PRN PRN Reason: Severe Pain (7-10) Stop: 07/14/19 14:15 Ondansetron HCl (Zofran) 8 mg IVP Q6HR PRN PRN Reason: Nausea And Vomiting Stop: 07/14/19 14:15 Last Admin: 01/13/19 14:55 Dose: 8 mg Promethazine HCl (Phenergan) 12.5 mg IVP Q6HR PRN PRN Reason: Nausea And Vomiting Stop: 07/14/19 20:19 Last Admin: 01/13/19 07:55 Dose: 12.5 mg Rosuvastatin Calcium (Crestor) 40 mg PO HS [facility] Stop: 07/15/19 21:01 Last Admin: 01/13/19 20:46 Dose: 40 mg Ticagrelor (Brilinta) 90 mg PO BID [facility] Stop: 07/14/19 21:01 Last Admin: 01/14/19 09:57 Dose: 90 mg - Imaging and Cardiology Chest Xray: report reviewed Echo: report reviewed Cardiac cath: report reviewed - EKG Interpretation EKG results cardiology: other (Telmetry reviewed with average HR previous 12 hours noted to be 78, SR. PVCs and PACs noted.) Consult Discharge Plan - Plan Referrals: Maureen Vizcarra CNP [Advanced Practice Nurse] - (Office will call patient at home with follow up appointment) Johnny Freitas MD [Primary Care Provider] - 01/21/19 10:00 am
--- NOTE | 2019-01-14 16:52 | Urology Progress Note ---
Date of Encounter: 01/14/19 Time of Encounter: 16:50 - Assessment and Plan (1) Nephrolithiasis Current Visit: Yes Status: Acute Assessment and plan: I spoke with Dr. Seymour and he prefers to hold off on the ureteral stent placement if at all possible as he still may be somewhat unstable from a cardiac standpoint in regards to a surgical procedure. The patient's pain and nausea have decreased significantly. Will observe and not place a ureteral stent during the hospitalization. Dr. Seymour prefers to wait 30 days before we attempt a ureteroscopic stone extraction. The patient or his will contact the office of pain reoccurs after discharge Progress Note Subjective: feels better Narrative: Nausea and pain have resolved Objective Initial Vital Signs Temp Pulse Resp BP Pulse Ox 97.9 F 84 16 132/96 96 01/12/19 13:46 01/12/19 13:46 01/12/19 13:46 01/12/19 13:46 01/12/19 13:46 - General physical appearance Present: well developed, well nourished, no distress - Labs 01/13/19 04:30 01/13/19 04:30 Consult Discharge Plan - Plan Referrals: Maureen Vizcarra CNP [Advanced Practice Nurse] - (Office will call patient at home with follow up appointment) Johnny Freitas MD [Primary Care Provider] - 01/21/19 10:00 am
[2019-01-15] MEDS ORDERED: *HR* Morphine 2 MG/ML SYRINGE IVP PRN (00:17)
[2019-01-15] MEDS ORDERED: *HR* HYDROcodone/Acet 5/325 mg TABLET PO PRN (00:17)
[2019-01-15] MEDS ORDERED: *HR* Promethazine 25 MG/ML VIAL IVP PRN (00:17)
[2019-01-15] MEDS ORDERED: Ondansetron 4 MG/2 ML VIAL IVP PRN (00:17)
[2019-01-15] MEDS ORDERED: Acetaminophen 325 MG TABLET PO PRN (00:17)
[2019-01-15] MEDS ORDERED: *HR* Ticagrelor 90 MG TABLET PO SCH (09:00)
[2019-01-15] MEDS ORDERED: Aspirin 81 MG TAB.CHEW PO SCH (09:00)
[2019-01-15] MEDS ORDERED: Metoprolol XL (24 HR) Succ 25 MG TAB.ER.24H PO SCH (09:00)
--- NOTE | 2019-01-15 09:39 | Discharge Summary ---
- NOTES TO OUTPATIENT PROVIDER Notes to Outpatient Provider: Admitted as STEMI. Date of Encounter: 01/15/19 Time of Encounter: 09:00 - Discharge Diagnosis (1) STEMI (ST elevation myocardial infarction) Priority: Primary Status: Acute Comments: Admitted as STEMI Qualifiers: Involved coronary artery: other inferior wall coronary artery Qualified Code(s): I21.19 - ST elevation (STEMI) myocardial infarction involving other coronary artery of inferior wall (2) Nephrolithiasis Priority: Secondary Status: Acute Comments: Known, will follow with urology outpatient. (3) Preop cardiovascular exam Priority: Secondary Status: Acute - Hospital Course Hospital course: Mr. Palacio is a 68 year old male who was admitted to [facility] as STEMI. Patient was taken emergently to the mechanical laboratory technician and has thrombectomy and VENUS placement x2. Denies chest pain. Patient is on asa, brilinta. Assistance card given to patient. Educated on dual anti-platelet therapy uninterrupted for at least one year, states understanding. On stain, BB. Right radial access site with ecchymosis noted, no hematoma. 2+ radial palpable pulse. Radial access site management education reviewed with patient, states understanding. Of note, patient has nephrolithiasis and was pending surgery, was evaluated by urology inpatient. Plan for surgery after 30 days. Urology educated patient to call their office for any recurrence of symptoms. ERX sent to pharmacy. ERX sent for nitro to pharmacy from [facility]. Patient educated on how to use nitro. Patient is being prepped for discharge home in stable condition. All questions answered. Patient will follow with [facility], follow up set. - Time Spent with Patient Total time spent providing and/or coordinating discharge services: Less than 30 minutes - Discharge Medications Prescriptions: New Metoprolol XL (24 HR) Succ [Toprol Xl] 12.5 mg PO DAILY #30 tab.er.24h Rosuvastatin [Crestor] 40 mg PO HS #30 tablet Ticagrelor [Brilinta] 90 mg PO BID #60 tablet Continue Triamcinolone Acetonide 15 gm TP DAILY PRN PRN Reason: red itchy rash Aspirin [Lo-Dose Aspirin EC] 81 mg PO DAILY Discontinued Lisinopril-HCTZ 10-12.5 [Prinzide 10-12.5] 1 each PO DAILY Home Medications: Aspirin [Lo-Dose Aspirin EC] 81 mg PO DAILY 01/12/19 [History] Triamcinolone Acetonide 15 gm TP DAILY PRN 01/12/19 [History] Metoprolol XL (24 HR) Succ [Toprol Xl] 12.5 mg PO DAILY #30 tab.er.24h 01/15/19 [Rx] Rosuvastatin [Crestor] 40 mg PO HS #30 tablet 01/15/19 [Rx] Ticagrelor [Brilinta] 90 mg PO BID #60 tablet 01/15/19 [Rx] Allergies/Adverse Reactions: Allergy/AdvReac Type Severity Reaction Status Date / Time No Known Allergies Allergy Unverified 07/06/15 14:23 Date of admission: 01/12/19 14:21 Primary care physician: Johnny Freitas MD Consults: 01/12/19 14:14 Consult to Cardiac Rehabilitation-Phase1 [CONS] Routine Comment: Reason for Consult: AMI Call Completed: Yes Consult to Nurse Navigator [CONS] Routine Comment: 01/12/19 16:24 Consult to Cardiac Rehabilitation-Phase1 [CONS] Routine Comment: Reason for Consult: post op PCI Call Completed: Yes 01/14/19 08:13 Consult to Urology [CONS] Routine Consulting Provider: Urology Jaky Reason for Consult: nephrolithiasis Call Completed: Yes Discharging clinician: Maureen Vizcarra Anticipated date of discharge: 01/15/19 Physical Examination Vital Signs, Last 4 Hours Temp Pulse Resp BP Pulse Ox 01/15/19 07:48 98.3 F 85 16 112/81 95 General: Conversant, No Apparent Distress HEENT: Atraumatic, Normocephaly, Mucus Membranes Moist Neck: No JVD, Normal carotid pulses Cardiac: Reg Rate and Rhythm, Normal S1 and S2, No Murmur Lungs: Normal Breath Sounds, No Wheeze, Rales, Rhonchi Neuro: Alert and responsive, No focal deficits noted Abdomen: Soft, Non-Tender Skin: No rashes noted on visualized skin, Other (Right radial access site with ecchymosis noted, no hematoma. ) Musculoskeletal: No Chest Wall Tenderness Extremities: No Clubbing, No Cyanosis, No Edema, Normal Pulses - Patient Status Disposition: Home, Self-Care Condition: Good Functional capacity at discharge: independent ambulation Overall status at discharge: patient is progressing back to baseline - Discharge Instructions Follow Up With: Maureen Vizcarra CNP [Advanced Practice Nurse] - (Office will call patient at home with follow up appointment) Johnny Freitas MD [Primary Care Provider] - 01/21/19 10:00 am Additional Instructions: RISK FACTORS: STOP SMOKING: If you smoke, STOP. Smoking or tobacco use significantly increases your risk of heart disease because nicotine causes the arteries to narrow or constrict. It also causes fats to stick to the artery. Your chances of having a heart attack are greatly increased if you continue to smoke. For more information, call the education line for smoking cessation 1-986-[facility] EAT A LOW FAT/CHOLESTEROL/SODIUM DIET: This diet may help reduce your chances of having a heart attack. LIFTING: With affected extremity: Avoid bending, pushing off and lifting more than 2 pounds for 24 hours The following 48 hours, avoid lifting anything more than 5 pounds Avoid strenuous activity or repetitive motions ACTIVITY: You may walk or climb stairs as tolerated You can resume sexual activity as tolerated In general, you are encouraged to engage in a minimum of 30 minutes or more of moderate intensity physical activity, such as brisk walking, daily or at least 3-4 times weekly BATHING Do not submerge the site into water (bath tub, hot tub, swimming pool, dishes) for 1 week. This can be a source for infection into the blood stream. You may shower after 24 hours SITE CARE: After 24 hours, you may remove the dressing and leave the site open to air. Keep the site clean and dry. Clean gently and pat dry. You can expect bruising and tenderness that gradually resolve within a week or two. Return to work as instructed per your physician Resume driving as instructed per physician Keep all scheduled follow up appointments Resume medications as instructed IMPORTANT: If prescribed a Platelet Aggregation Inhibitor such as, Plavix, Brilinta or Effient: Duration of therapy is minimum one year These medications are often used in combination with Aspirin in prevention of future heart attacks Never discontinue unless consult with your Senior Behavioral Scientist STROKE (CVA) Risk factors for a stroke are: Age, cigarette smoking, diabetes, excessive alcohol consumption, family history, high blood pressure, overweight, physical inactivity, prior stroke, heart attack, diagnosis of carotid artery stenosis or other artery disease. Warning signs: Sudden numbness or weakness of the face, arm or leg; especially on one side of the body, sudden confusion, trouble speaking or understanding, sudden trouble seeing in one or both eyes, sudden trouble walking, dizziness, loss of balance or coordination, sudden severe headache with no cause. Call 911 or go to the Emergency Room. CONGESTIVE HEART FAILURE: If you have been diagnosed with Congestive Heart Failure (CHF) and your symptoms return, make an appointment with your physician Weigh yourself daily. Notify your physician if you have a weight gain of two or more pounds in one day or five or more pounds in one week. If you experience any difficulty breathing, please call 911 BLEEDING: Although the risk of bleeding is minimal, it can happen. If you have any bleeding from the site, apply firm pressure above the puncture site for 10-15 minutes. If the bleeding does not stop, continue manual pressure and call 911 Contact [facility] ( ) if: You develop a fever greater than 101 degrees Fahrenheit Your site becomes reddened or has any drainage You have an increase in pain or burning at the site or if a large knot forms at the site. If you experience chest pain, shortness of breath, dizziness, or extreme tiredness, stop the activity and rest. Please notify [facility] office if you experience any of these symptoms and they are not relieved by rest please call 911! - Diet and Activity Activity: increase activity as tolerated (Follow restrictions as above. ) Diet: low fat, low cholesterol, low salt diet
[2019-01-15 11:01] VITALS: BP 102/67
--- NOTE | 2019-01-15 11:19 | Invasive Diagnostic Lab Proc ---
Name: Hector Palacio Date of Study: 01/12/2019 Date: 1950 Ht: 72.0in Medical Record#: [id number] Age: 68 Wt: 214.95lb Gender: Male BSA: 2.2 Order #: [id number] BMI: 29.11 Physicians Procedure Physician: Andre Seymour MD, [facility] Referring MD: Johnny Freitas MD Referring MD: Staff Name Position Time In LeeannaMaria Luz RN Monitor 02:10 PM Gregorio Montero RN Yard Supervisor 02:10 PM Angel Snow RN Yard Supervisor 02:10 PM Kathy, Nayeli RT (R) Scrub 02:11 PM Indications Indication STEMI Procedures Performed Procedure PRQ CARD REVASC CT 1 VSL L HRT ARTERY/VENTRICLE ANGIO MOD SED OTH PHYS/QHP 5/>YRS MOD SED OTHER PHYS/QHP EA MOD SED OTHER PHYS/QHP EA MOD SED OTHER PHYS/QHP EA MOD SED OTHER PHYS/QHP EA MOD SED OTHER PHYS/QHP EA MOD SED OTHER PHYS/QHP EA Pre-Procedure Checklist Pt not NPO for procedure and MD aware. Blood Pressure: 128/87 Rhythm: NSR Plan of Care Patient will tolerate the procedure without complications. Adequate level of comfort will be maintained. Hemodynamics will remain stable Patient will recover from procedure without complications. Respiratory function will be maintained. Cardiac rhythm will remain stable. Patient temperature will be maintained. Patient and/or family have verbalized understanding of the procedure. Patient Education Chief Complaint/Reason for Test: PCI Developmental Category: Geriatric (65+ years) Developmentally Appropriate for Age: Yes Learning Barriers: None Education Needs: Procedure Education Method: Verbal Information Taught: PCI Educational Evaluation: Able to repeat information Intravenous Access Time IV Size Location DC'd Fluid/Drip Rate Units RN 18g 1 /" Patent On Arrival Lt Antecubital 16 gauge Rt Antecubital Allergies No Known Allergies Vital Signs Time BP (mmHg) HR (bpm) O2 Sat. RR (bpm) LOC 128 / 87 76 99 % 16 02:11 PM / % 5 = Fully awake and oriented or at pre-proc level 02:11 PM / % 4 = Oriented but drowsy 02:26 PM / % 4 = Oriented but drowsy 02:41 PM / % 4 = Oriented but drowsy 02:56 PM / % 4 = Oriented but drowsy 03:12 PM / % 4 = Oriented but drowsy 03:27 PM / % 4 = Oriented but drowsy 03:42 PM / % 4 = Oriented but drowsy 03:57 PM / % 4 = Oriented but drowsy 02:14 PM 104 / 67 83 93 % 02:16 PM 114 / 78 83 91 % 17 02:19 PM 113 / 78 87 94 % 17 02:24 PM 107 / 69 86 88 % 14 02:29 PM 106 / 61 75 92 % 16 02:34 PM 104 / 71 81 93 % 18 02:39 PM 110 / 76 79 94 % 18 02:44 PM 111 / 75 77 95 % 16 02:49 PM 112 / 71 81 94 % 33 02:54 PM 112 / 78 80 96 % 16 02:59 PM 111 / 78 81 98 % 18 03:04 PM 117 / 80 80 97 % 16 03:09 PM 118 / 76 76 99 % 14 03:14 PM 116 / 78 79 97 % 18 03:19 PM 124 / 77 77 99 % 16 03:24 PM 118 / 82 80 98 % 16 03:29 PM 119 / 80 79 98 % 16 03:34 PM 116 / 83 80 98 % 18 03:39 PM 116 / 79 80 99 % 17 03:44 PM 115 / 80 72 98 % 15 03:49 PM 124 / 85 81 99 % 16 03:55 PM 127 / 79 77 97 % 15 04:01 PM 126 / 90 88 99 % 15 04:04 PM 134 / 91 83 100 % 16 04:10 PM 131 / 88 89 100 % 18 Procedural Medications Time Medication Dose Units Method Given By 02:11 PM Oxygen 2 L/min nasal cannula Angel Snow RN 02:19 PM Versed 2 mg Intravenous Angel Snow RN 02:19 PM Fentanyl 50 mcg Intravenous Angel Snow RN 02:19 PM Lidocaine 2% 0.5 ml Subcutaneous Andre Seymour MD, FACC 02:20 PM Zofran 8 mg Intravenous Angel Snow RN 02:21 PM Heparin 1000 units Nitroglycerin 200 mcg Verapamil 2.5 mg Intraarterial Andre Seymour MD, FACC 02:41 PM Aggrastat Bolus: 50 ml Intravenous Angel Snow RN 02:41 PM Aggrastat 12.5mg/250ml 18 ml Intravenous Angel Snow RN 02:55 PM Alteplase 2 mg Intracoronary Andre Seymour MD 03:10 PM Lidocaine 2% 10 ml Subcutaneous Andre Seymour MD, FACC 04:09 PM Nitroglycerin 200 mcg Intracoronary Andre Seymour MD ASA Classification: CLASS IV- Severe systemic that is constant threat to patient's life Pernell Score Preprocedure Postprocedure Activity 2- Moves 4 extremities sustained head lift Activity 2- Moves 4 extremities sustained head lift Circulation 2- SBP +/= 20 points of pre-anesthetic level Circulation 2- SBP +/= 20 points of pre-anesthetic level Consciousness 2- Awake and alert oriented x 3 Consciousness 2- Awake and alert oriented x 3 O2 Saturation 2- Able to maintain O2 satruation of 92% on room air O2 Saturation 2- Able to maintain O2 satruation of 92% on room air Respiratory 2- Able to deep breathe and cough well Respiratory 2- Able to deep breathe and cough well Total Score 10 Total Score 10 Contrast Agent: Isovue Diagnostic Contrast: 249 ml Total Contrast: 249 ml Fluoro Dose: 221 mGy Activated Clotting Time Time Seconds to Clot 02:41 PM 312 03:29 PM 325 Procedure Log Time Note Enter By 02:03 PM CathStat 02:10 PM Pt arrived to manufacturing laborer 1 at 14:10 [facility] 02:10 PM Maria Luz Durán RN Position: Monitor Time in: 14:10 [facility] 02:10 PM Gregorio Montero RN Position: Yard Supervisor Time in: 14:10 [facility] 02:11 PM Angel Snow RN Position: Yard Supervisor Time in: 14:10 [facility] 02:11 PM Nayeli Chavez RT (R) Position: Scrub Time in: 14:11 [facility] 02:11 PM Patient charges- Angio tray pack, Navilyst 3mm J, Pulse Oximetry and ACIST tubing and transducer [facility] 02:11 PM Case Delayed No [facility] 02: PM Time: 14:11 Oxygen on at 2 L/min per nasal cannula by Angel Snow RN [facility] 02:11 PM Time: 14:11 Patient comfortable and pain free: Yes [facility] 02:11 PM Time: 14:11LOC: 5 = Fully awake and oriented or at pre-proc level kmavis 02:14 PM Vitals capture started with the following parameters, Patient=Adult, Interval=5 min, Initial Xdwbqkjq=518 mmHg, Deflation Rate=3 mmHg, Cuff placed on Right Arm 02:14 PM HR=83 bpm, FAWP=162/67 mmhg, SpO2=93 % 02:15 PM NIBP STAT measurement started. 02:16 PM HR=83 bpm, OHKN=324/78 mmhg, SpO2=91 %, Resp=17 B/min 02:18 PM Hair removed from procedure site in procedure lab using clippers. Right wrist and Right groin prepped with Chloraprep by Gregorio Montero RN, then patient was draped. Skin intact. kmavis :18 PM Physician arrived 14:18 kmavis :18 PM Meet and greet completed kmavis :18 PM Sign in performed according to hospital policy. Informed consent was obtained. kmavis :18 PM Procedure start 14:18 kmavis :18 PM Recorded ECG: HR=85 Condition=Condition 1 02:19 PM Time: 14:19 Versed 2 mg Intravenous Given by Angel Snow RN [facility] :19 PM Time: 14:19 Fentanyl 50 mcg Intravenous Given by Angel Snow RN avis 02:19 PM HR=87 bpm, ZCVX=371/78 mmhg, SpO2=94.0 %, Resp=17 B/min 02:19 PM Time out was performed according to hospital policy. Conscious sedation and anesthesia was achieved (see medication log with in this report above) kmavis 02:19 PM Critical cardiac patient with acute CT was brought emergently to the cardiac garden labourer for immediate coronary angiography and intervention if clinically indicated. kmavis 02:20 PM Time: 14:19 0.5 ml Lidocaine 2% to right radial Subcutaneous Given by Andre Seymour MD, [facility] kmavis 02:20 PM 6Fr JR 4 Runway guide catheter was used to cannulate the PCI vessel successfully. reused? No kmavis 02:20 PM .014 [place] 190cm guide wire across target lesion- successful. reused? No kmavis 02:20 PM Inflation device was opened. kmavis 02:21 PM Time: 14:20 Zofran 8 mg Intravenous Given by Angel Snow RN kmavis 02:21 PM Access obtained by percutaneous puncture. 6Fr 10cm Terumo Glidesheath sheath placed in right Radial artery. [id number] kmavis 02:21 PM Time: 14:21 Patient given 1000 units Heparin, 200 mcg Nitroglycerin, and 2.5 mg Verapamil Intraarterial by Andre Seymour MD, [facility]. This is given to reduce risk of vessel spasm and thrombosis. kmavis 02:23 PM RCA angiography performed in multiple views. kmavis 02:24 PM HR=86 bpm, NVXZ=326/69 mmhg, SpO2=88.0 %, Resp=14 B/min 02:25 PM Recorded Pressure: Ao, HR=84, Condition=Condition 1 (Aorta) Ao 89/69/78 02:26 PM 2.25 mm x 12 mm Emerge Monorail balloon across target lesion- successful. reused? No kmavis 02:26 PM Time: 14:11LOC: 4 = Oriented but drowsy kmavis 02:26 PM Time: 14:11 Patient comfortable and pain free: Yes kmavis 02:28 PM Balloon inflated @ 8 amalia for 13 seconds kmavis 02:28 PM Balloon inflated @ 8 amalia for 8 seconds kmavis 02:29 PM PCI lesion in Distal RCA. Pre Stenosis: 100 Pre MATTHEW Flow: kmavis 02:29 PM Right Coronary, Right Posterior Descending Arteries with Right Posterolateral and Acute Marginal branches with 100 % stenosis. If graft is supplying this area, 0 % stenosis kmavis 02:29 PM HR=75 bpm, CSCB=822/61 mmhg, SpO2=92.0 %, Resp=16 B/min 02:30 PM Balloon catheter removed intact. kmavis 02:31 PM Second wire inserted into RCA .014 PT Graphix 182cm guide wire across target lesion- successful. reused? No kmavis 02:33 PM Recorded Pressure: Ao, HR=79, Condition=Condition 1 (Aorta) Ao 88/68/78 02:34 PM HR=81 bpm, DMHE=009/71 mmhg, SpO2=93.0 %, Resp=18 B/min 02:38 PM Pronto V4 6 Fr. extraction catheter inserted, could not be delivered kmavis 02:39 PM HR=79 bpm, HEHI=636/76 mmhg, SpO2=94.0 %, Resp=18 B/min 02:39 PM Pronto V4 6 Fr. extraction catheter removed and intact. kmavis 02:41 PM Time: 14:41 Aggrastat Bolus: 50 ml Intravenous Given by Angel Snow RN Goddard pump kmavis 02:41 PM Time: 14:41 Aggrastat 12.5mg/250ml 18 ml Intravenous Given by Angel Snow RN Goddard pump kmavis 02:41 PM Time: 14:26LOC: 4 = Oriented but drowsy kmavis 02:41 PM Time: 14:26 Patient comfortable and pain free: Yes kmavis 02:42 PM At 14:41 the ACT was 312 seconds. kmavis 02:42 PM ASA Class CLASS IV- Severe systemic that is constant threat to patient's life kmavis 02:44 PM HR=77 bpm, MTCD=171/75 mmhg, SpO2=95.0 %, Resp=16 B/min 02:45 PM 3.0 mm x 20 mm Emerge Monorail balloon across target lesion- successful. reused? No kmavis 02:45 PM Balloon inflated @ 14 amalia for 14 seconds kmavis 02:46 PM Balloon catheter removed intact. kmavis 02:47 PM Recorded Pressure: Ao, HR=77, Condition=Condition 1 (Aorta) Ao 102/76/89 02:49 PM HR=81 bpm, XCYF=016/71 mmhg, SpO2=94.0 %, Resp=33 B/min 02:54 PM HR=80 bpm, CVRX=669/78 mmhg, SpO2=96.0 %, Resp=16 B/min 02:56 PM Time: 14:55 Alteplase 2 mg Intracoronary Given by Andre Seymour MD kmavis 02:56 PM Time: 14:41 Patient comfortable and pain free: Yes kmavis 02:56 PM Time: 14:41LOC: 4 = Oriented but drowsy kmavis 02:59 PM Guide wire removed intact x 2. kmavis 02:59 PM HR=81 bpm, CYSN=250/78 mmhg, SpO2=98.0 %, Resp=18 B/min 03:01 PM Guide catheter removed intact. kmavis 03:01 PM 5Fr TIG catheter inserted over the wire DNC kmavis 03:02 PM LCA angiography performed in multiple views. kmavis 03:02 PM Recorded Pressure: Ao, HR=79, Condition=Condition 1 (Aorta) Ao 104/80/93 03:04 PM HR=80 bpm, IUFA=132/80 mmhg, SpO2=97.0 %, Resp=16 B/min 03:05 PM Recorded Pressure: Ao, HR=82, Condition=Condition 1 (Aorta) Ao 112/85/99 03:09 PM HR=76 bpm, DYEC=600/76 mmhg, SpO2=99.0 %, Resp=14 B/min 03:10 PM Time: 15:10 10 ml Lidocaine 2% to right groin Subcutaneous Given by Anrde Seymour MD, [facility] kmavis 03:11 PM TIG Catheter removed kmavis 03:12 PM Time: 14:56LOC: 4 = Oriented but drowsy kmavis 03:12 PM Time: 14:56 Patient comfortable and pain free: Yes kmavis 03:12 PM 6Fr WRP Runway guide catheter was used to cannulate the PCI vessel successfully. reused? No kmavis 03:12 PM Recorded Pressure: LV, HR=77, Condition=Condition 1 (Left Ventricle) LV 110/17/24 03:13 PM Recorded Pressure: LV, Ao, HR=76, Condition=Condition 1 (Left Ventricle) LV 108/27/31, (Aorta) Ao 118/79/98 03:13 PM Catheter crossed the aortic valve and was selectively placed in the left ventricle. Pressures recorded on pullback for left heart catheterization. kmavis 03:14 PM RCA angiography performed in multiple views. kmavis 03:14 PM HR=79 bpm, EINR=238/78 mmhg, SpO2=97.0 %, Resp=18 B/min 03:19 PM HR=77 bpm, QFOV=210/77 mmhg, SpO2=99.0 %, Resp=16 B/min 03:19 PM Sheath exchanged for a 6/7 Fr 10 cm Terumo Glidesheath sheath [id number] kmavis 03:21 PM 7Fr AR2 Mach 1 guide catheter was used to cannulate the PCI vessel successfully. reused? No kmavis 03:22 PM Recorded Pressure: Ao, HR=78, Condition=Condition 1 (Aorta) Ao 115/78/96 03:24 PM HR=80 bpm, JDXO=657/82 mmhg, SpO2=98.0 %, Resp=16 B/min 03:25 PM Pronto V4 6 Fr. extraction catheter re-inserted. kmavis 03:27 PM Time: 15:12 Patient comfortable and pain free: Yes kmavis 03:27 PM Time: 15:12LOC: 4 = Oriented but drowsy kmavis 03:27 PM Recorded Pressure: Ao, HR=80, Condition=Condition 1 (Aorta) Ao 104/82/93 03:29 PM Pronto V4 thrombectomy pass # 1 for 25 ml total fluid. kmavis 03:29 PM At 15:29 the ACT was 325 seconds. kmavis 03:29 PM HR=79 bpm, PAVC=129/80 mmhg, SpO2=98.0 %, Resp=16 B/min 03:30 PM Pronto V4 removed kmavis 03:30 PM Pronto V4 re-inserted. kmavis 03:31 PM Pronto V4 thrombectomy pass # 2 for 20 ml total fluid. kmavis 03:33 PM Pronto V4 removed kmavis 03:33 PM Pronto V4 re-inserted kmavis 03:34 PM Pronto V4 removed. kmavis 03:34 PM Pronto v4 thrombectomy pass # 3 for 25 ml total fluid. kmavis 03:34 PM HR=80 bpm, ZKBV=728/83 mmhg, SpO2=98.0 %, Resp=18 B/min 03:38 PM Multiple passes completed per Dr. Seymour for a total of 10. kmavis 03:39 PM HR=80 bpm, LTBO=864/79 mmhg, SpO2=99.0 %, Resp=17 B/min 03:42 PM Time: 15:27LOC: 4 = Oriented but drowsy kmavis 03:42 PM Time: 15:27 Patient comfortable and pain free: Yes kmavis 03:44 PM HR=72 bpm, CQRY=709/80 mmhg, SpO2=98.0 %, Resp=15 B/min 03:45 PM Pronto V4 removed. kmavis 03:45 PM Recorded Pressure: Ao, HR=76, Condition=Condition 1 (Aorta) Ao 108/72/90 03:46 PM Lesion found in Mid LAD. Pre Stenosis: 40 Pre MATTHEW Flow: kmavis 03:47 PM Mid/Distal Left Anterior Descending Coronary Artery and diagonal branches with 40% stenosis. If graft is supplying this area, 0 % stenosis kmavis 03:[address] [facility] PM HR=81 bpm, QNBI=856/85 mmhg, SpO2=99.0 %, Resp=16 B/min 03:[address] Seymour speaking with Dr. Tate on the phone at this time kmavis 03:53 PM Physician reviewing films kmavis 03:55 PM HR=77 bpm, IZCR=200/79 mmhg, SpO2=97.0 %, Resp=15 B/min 03:55 PM 3.0mm x 24mm Synergy drug-eluting stent across target lesion- successful Lot #[id number] kmavis 03:57 PM Time: 15:42LOC: 4 = Oriented but drowsy kmavis 03:57 PM Time: 15:42 Patient comfortable and pain free: Yes kmavis 03:58 PM Stent deployed @ 18 amalia for 18 seconds kmavis 03:58 PM Stent delivery system removed intact. kmavis 04:01 PM HR=88 bpm, PXJV=461/90 mmhg, SpO2=99.0 %, Resp=15 B/min 04:01 PM 3.0mm x 16mm Synergy drug-eluting stent across target lesion- successful Lot #[id number] kmavis 04:01 PM Recorded Pressure: Ao, HR=89, Condition=Condition 1 (Aorta) Ao 127/88/107 04:03 PM Stent deployed @ 16 amalia for 13 seconds kmavis 04:03 PM Stent delivery system removed intact. kmavis 04:04 PM 4.0 mm x 20mm NC Trek Rx balloon across target lesion- successful. reused? No kmavis 04:04 PM HR=83 bpm, ORRB=552/91 mmhg, AkV9=238.0 %, Resp=16 B/min 04:05 PM Balloon inflated @ 14 amalia for 13 seconds kmavis 04:06 PM Balloon inflated @ 16 amalia for 13 seconds kmavis 04:08 PM Guide wire removed intact. kmavis 04:08 PM Balloon catheter removed intact. kmavis 04:09 PM Time: 16:09 Nitroglycerin 200 mcg Intracoronary Given by Andre Seymour MD kmavis 04:10 PM HR=89 bpm, ODJE=855/88 mmhg, ZlI0=878.0 %, Resp=18 B/min 04:10 PM Procedure completed at 16:10 01/12/2019 kmavis 04:10 PM Did you address MATTHEW flow and Dominance? Yes kmavis 04:12 PM Sign out completed: Radiation Dose 3664.36 mGy, 220.77 Gy/cm2 Fluoro Time: 25.4 Isovue 370 - 200ml contrast 249 ml given by Andre Seymour MD, FACC. Complications: None. The patient was discharged out of the garden labourer in stable condition. Sedation minutes 120. Cardiac Rehab Consult needed: Yes. Confirmed administered medications: Yes kmavis 04:12 PM Time: 15:57LOC: 4 = Oriented but drowsy kmavis 04:12 PM Time: 15:57 Patient comfortable and pain free: Yes kmavis 04:12 PM Isovue 370 - 100ml,4 Bottle(s) used. kmavis 04:12 PM Arterial sheath pulled, Vasc Band closure device used and was Successful S/N. kmavis 04:14 PM 14 ml air in Vasc Band. kmavis 04:15 PM Estimated Blood Loss: greater than 50cc kmavis 04:15 PM Post ECG NSR kmavis 04:15 PM Post Blood Pressure 131/88 kmavis 04:15 PM Information taught Cardiac Cath, PCI, and Vasc Band kmavis 04:15 PM Education needs Procedure, Plan of Care, and Disease Process kmavis 04:15 PM Learning barriers :None kmavis 04:15 PM Education Methods Verbal kmavis 04:16 PM Education evaluation Able to repeat information kmavis 04:16 PM Site status No bleeding/hematoma - Rt Arm as reported by Sites, Nayeli RT (R) at 16:16 kmavis 04:16 PM Opsite applied kmavis 04:17 PM Delay to floor No kmavis 04:17 PM Family placed in consult room. kmavis 04:17 PM Complications: None kmavis 04:23 PM Report given to Simi ENRIQUEZ Pt taken to ICU. 16:22 kmavis 04:23 PM Plavix, Effient or Brilinta given Yes kmavis 04:23 PM Patient out of room: 16:23 kmavis 04:[address] Seymour states to call pharmacy and have 40mg of crestor given and have patient started on heparin drip. Called pharmacy and pharmacist states she will bring up medication. Notified Simi in ICU. kmavis 11:04 AM Coronary Dominance: right kmavis Equipment Used Size Length Diameter Item Category ACT Other ACT Other Angio tray pack Other Runway Guide catheter BMW Guidewire Inflation kit Other Terumo Glidesheath sheath Emerge PTCA Dilatation Catheter Monorail Balloon PT Graphix Guidewire Goddard pump Other Emerge PTCA Dilatation Catheter Monorail Balloon Runway Guide catheter Terumo Glidesheath sheath Mach 1 Guide catheter [place] Catheter Thrombectomy Xience Belinda Rx Drug Eluting Stent Xience Belinda Rx Drug Eluting Stent NC Trek Rx Balloon Vasc Band Manual Compression Manual compression Complications Complication None None Hemodynamics Pressures Site Systolic/A Wave Diastolic/V Wave Mean AO 89 69 78 AO 88 68 78 AO 102 76 89 AO 104 80 93 AO 112 85 99 LV 110 17 24 LV 108 27 31 AO 118 79 98 AO 115 78 96 AO 104 82 93 AO 108 72 90 AO 127 88 107 Post Procedure Information Blood Pressure: 131/88 mmHg Rhythm: NSR Post procedural instructions were given Closure Device Time Device Success/Fail 01/12/2019 4:26:00 PM Mechanical Compression Successful Site Checks Time Location Status Staff Sheath In? Note 04:16 PM Rt Arm No bleeding/hematoma Sites, Nayeli RT (R) Pulses Updated by Maria Luz Durán RN on 01/15/2019 11:11:18 AM electronically signed on 01/15/2019 11:13:14 AM with status of Final
--- NOTE | 2019-01-16 09:47 | Electrocardiograph Report ---
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
--- NOTE | 2019-01-16 09:47 | Electrocardiograph Report ---
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
== END 2019-01-15 11:56 | disposition home or self-care (01) | DRG 247 ==
LOC: EMEROOARM 13:40 → ICNU 14:09 → 2NNU 01-13 18:44 → 2NENU 01-15 00:15
PROVIDERS: ADMIT Emergency Medicine; ATTEND Emergency Medicine

== ENCOUNTER 2020-01-19 22:40 | Inpatient (IN) ==
[2020-01-19] MEDS ORDERED: 0.9 % Sodium Chloride 1,000 ML IVC ONE (22:52)
[2020-01-19] MEDS ORDERED: Ketorolac 15 MG/ML VIAL IVP ONE (22:52)
[2020-01-19] MEDS ORDERED: Ondansetron 4 MG/2 ML VIAL IVP ONE (23:03)
[2020-01-19] MEDS ORDERED: Ondansetron 4 MG/2 ML VIAL ONE (23:03)
[2020-01-19 23:11] LABS: Basophils % 0.6 %; Hemoglobin 15.1 g/dL (12.9-16.9)
[2020-01-19 23:13] LABS: Bilirubin,Urine Negative (Negative); Blood,Urine Moderate (Negative); Clarity,Urine Cloudy (Clear); Color,Urine Yellow (Yellow); Glucose,Urine (UA) Normal (Normal); Ketones,Urine Negative (Negative); Leukocyte Esterase,Urine Moderate (Negative); Nitrite,Urine Positive (Negative); Protein,Urine Negative (Neg-Trace); Specific Gravity,Urine 1.014 (1.010-1.025); Urobilinogen,Urine Normal (Normal)
[2020-01-19 23:13] LABS: Eosinophils % 1.7 %; Hematocrit 45.3 % (37.5-50.1); Immature Granulocytes % 1.1 % (0-4); Lymphocytes # 0.3 K/mcL (0.6-4.6); Lymphocytes % 14.6 %; Mean Corpuscular HGB Conc 33.3 g/dL (31.6-35.5); Mean Corpuscular Hemoglobin 30.3 pg (28.0-33.3); Mean Platelet Volume 9.1 fL (9.4-12.4); Neutrophils # 1.5 K/mcL (1.6-8.9); Platelet Count 116 K/mcL (140-400); Red Blood Count 4.98 M/mcL (4.19-5.50); Red Cell Distribution Width 13.2 % (11.5-14.5); White Blood Count 1.8 K/mcL (4.3-11.1)
[2020-01-19 23:21] LABS: Bacteria,Urine Many per hpf (None-Few); Hyaline Casts,Urine None Seen per lpf (None-Few); Squamous Epithelial Cell,Urine None Seen per lpf (None-Few); WBC,Urine 30-50 per hpf (0-3)
[2020-01-19 23:30] LABS: BUN/Creatinine Ratio 17 (6-26); Blood Urea Nitrogen 21 mg/dL (8-23); Calcium 9.8 mg/dL (8.6-10.3); Carbon Dioxide 27 mEq/L (23-29); Chloride 102 mEq/L (98-107); Glucose 96 mg/dL (70-105); Osmolality,Calculated 289 (280-300); Potassium 3.9 mEq/L (3.5-5.1); Sodium 138 mEq/L (136-145); eGFR For African Americans > 60 (> 60); eGFR For Non-African Americans 56 (> 60)
[2020-01-19 23:54] LABS: Platelet Estimate Slight Decrease (Normal)
[2020-01-20] MEDS ORDERED: cefTRIAXone 1,000 MG in 0.9 % Sodium Chloride Mini Bag 100 ML IVPB ONE (00:05)
[2020-01-20] MEDS ORDERED: *HR* HYDROmorphone (PF) 1 MG/ML SYRINGE IVP ONE (00:22)
[2020-01-20] MEDS ORDERED: Naloxone 0.4 MG/ML INJ IVP PRN ×2 (01:03→20:43)
[2020-01-20] MEDS ORDERED: Ondansetron 4 MG/2 ML VIAL IVP PRN ×2 (01:03→20:43)
[2020-01-20] MEDS: 0.9 % Sodium Chloride 1,000 ML IVC SCH ×2 (01:44→12:09)
[2020-01-20] MEDS ORDERED: Acetaminophen 325 MG TABLET PO PRN ×2 (02:47→20:43)
[2020-01-20 04:19] LABS: INR 1.2; Prothrombin Time 13.5 Seconds (9.4-12.1)
[2020-01-20] MEDS ORDERED: cefTRIAXone 2,000 MG in 0.9 % Sodium Chloride Mini Bag 100 ML IVPB SCH (09:00)
[2020-01-20] MEDS ORDERED: Piperacillin/Tazobactam 3.375 GM in 0.9 % Sodium Chloride Mini Bag 100 ML IVPB SCH ×2 (10:46→20:00)
[2020-01-20] MEDS ORDERED: Metoprolol XL (24 HR) Succ 25 MG TAB.ER.24H PO SCH (11:00)
[2020-01-20] MEDS ORDERED: 0.9 % Sodium Chloride 1,000 ML IVC ONE ×2 (14:43→15:19)
[2020-01-20] MEDS ORDERED: *HR* Propofol 200 MG/20 ML VIAL IVP ONE (15:17)
[2020-01-20] MEDS ORDERED: *HR* FentaNYL (PF) 100 MCG/2 ML VIAL ONE (15:19)
[2020-01-20] MEDS ORDERED: *HR* Midazolam HCl 5 MG/5 ML VIAL IVP ONE (15:19)
[2020-01-20] MEDS ORDERED: 0.9 % Sodium Chloride 1,000 ML ONE (15:19)
[2020-01-20] MEDS ORDERED: Lidocaine -MPF 2% 2 ML VIAL ONE (15:24)
[2020-01-20] MEDS ORDERED: Ondansetron 4 MG/2 ML VIAL ONE (15:24)
[2020-01-20] MEDS ORDERED: *HR* PHENYLEPHRINE 1,000 MCG/10 ML SYRINGE IVP ONE (15:24)
[2020-01-20] MEDS ORDERED: *HR* Dextrose 50 % in Water (Syg) 50 ML SYRINGE IVP ONE (15:39)
[2020-01-20] MEDS ORDERED: *HR* Heparin 5,000 UNIT/ML VIAL SQ SCH (18:00)
[2020-01-20 19:01] LABS: ABG Base Excess -8 mEq/L (-2 to 3); ABG HCO3 20 mEq/L (21-27); ABG Oxygen Saturation 94 % (95-98); ABG PCO2 51 mmHg (35-45); ABG PH 7.21 pH Units (7.32-7.45); ABG PO2 87 mmHg (85-104); ABG TCO2 22 mEq/L (20-26)
[2020-01-21] MEDS ORDERED: Piperacillin/Tazobactam 3.375 GM in 0.9 % Sodium Chloride Mini Bag 100 ML IVPB SCH (04:00)
[2020-01-21 04:23] LABS: Mean Corpuscular Volume 94.6 fL (83.0-100.0); Red Cell Distribution Width 14.4 % (11.5-14.5)
[2020-01-21 04:25] LABS: Hematocrit 40.3 % (37.5-50.1); Hemoglobin 12.6 g/dL (12.9-16.9); Immature Platelets 5.9 % (1.1-6.1); Mean Corpuscular HGB Conc 31.3 g/dL (31.6-35.5); Mean Corpuscular Hemoglobin 29.6 pg (28.0-33.3); Mean Platelet Volume 10.3 fL (9.4-12.4); Red Blood Count 4.26 M/mcL (4.19-5.50); White Blood Count 16.4 K/mcL (4.3-11.1)
[2020-01-21 04:44] LABS: Calcium 8.3 mg/dL (8.6-10.3); Magnesium 1.6 mg/dL (1.6-2.6); Phosphorous 8.1 mg/dL (2.7-4.5); Potassium 5.7 mEq/L (3.5-5.1)
[2020-01-21 04:46] LABS: Platelet Count 47 K/mcL (140-400)
[2020-01-21 04:49] LABS: Monocytes # 1.3 K/mcL (0.0-1.3); Neutrophils # 14.1 K/mcL (1.6-8.9)
[2020-01-21 04:50] LABS: Platelet Estimate Decreased (Normal)
[2020-01-21] MEDS ORDERED: *HR* Heparin 5,000 UNIT/ML VIAL SQ SCH (06:00)
[2020-01-21 06:42] LABS: Mean Corpuscular HGB Conc 31.9 g/dL (31.6-35.5)
[2020-01-21 06:44] LABS: Hematocrit 40.5 % (37.5-50.1); Hemoglobin 12.9 g/dL (12.9-16.9); Immature Platelets 5.6 % (1.1-6.1); Mean Corpuscular Hemoglobin 30.1 pg (28.0-33.3); Mean Corpuscular Volume 94.4 fL (83.0-100.0); Mean Platelet Volume 11.4 fL (9.4-12.4); Red Blood Count 4.29 M/mcL (4.19-5.50); Red Cell Distribution Width 14.5 % (11.5-14.5)
[2020-01-21 06:56] LABS: Calcium 8.2 mg/dL (8.6-10.3); Potassium 6.1 mEq/L (3.5-5.1)
[2020-01-21 07:02] LABS: Platelet Count 45 K/mcL (140-400)
[2020-01-21 07:05] LABS: Lymphocytes # 1.2 K/mcL (0.6-4.6); Neutrophils # 12.6 K/mcL (1.6-8.9); Platelet Estimate Decreased (Normal)
[2020-01-21 07:06] LABS: Polychromasia 1+ (Not Present)
[2020-01-21] MEDS ORDERED: Insulin Human Regular 10 UNIT in 0.9 % Sodium Chloride 10 ML IV ONE (07:38)
[2020-01-21] MEDS ORDERED: *HR* Dextrose 50 % in Water (Syg) 50 ML SYRINGE IVP ONE (07:38)
[2020-01-21] MEDS ORDERED: 0.9 % Sodium Chloride 1,000 ML IV ONE (07:38)
[2020-01-21] MEDS: Aspirin Enteric Coated 81 MG Tablet PO SCH (08:40)
[2020-01-21] MEDS: Calcium Gluconate 1gm/50mL 1 GM/50 ML BAG IVPB SCH ×2 (08:41→10:11)
[2020-01-21] MEDS ORDERED: Aspirin Enteric Coated 81 MG Tablet PO SCH (09:00)
[2020-01-21] MEDS ORDERED: D5% in Water 1,000 ML IVC ONE (12:04)
[2020-01-21] MEDS ORDERED: *HR* LORazepam 2 MG/ML VIAL IVP ONE (12:18)
[2020-01-21] MEDS: D5% in 0.9% NACL 1,000 ML IVC SCH (12:39)
[2020-01-21 14:55] LABS: Calcium 8.3 mg/dL (8.6-10.3); Potassium 5.2 mEq/L (3.5-5.1)
[2020-01-21] MEDS: Piperacillin/Tazobactam 3.375 GM in 0.9 % Sodium Chloride Mini Bag 100 ML IVPB SCH (15:32)
[2020-01-21] MEDS ORDERED: Vancomycin 500 MG in 0.9 % Sodium Chloride Mini Bag 100 ML IVPB ONE (16:00)
[2020-01-22] MEDS ORDERED: Haloperidol Lactate 5 MG/ML VIAL IVP ONE ×2 (00:14→09:41)
[2020-01-22] MEDS: Piperacillin/Tazobactam 3.375 GM in 0.9 % Sodium Chloride Mini Bag 100 ML IVPB SCH (04:03)
[2020-01-22 05:25] LABS: Red Cell Distribution Width 14.5 % (11.5-14.5); White Blood Count 18.2 K/mcL (4.3-11.1)
[2020-01-22 05:27] LABS: Hematocrit 38.4 % (37.5-50.1); Hemoglobin 12.3 g/dL (12.9-16.9); Immature Platelets 5.2 % (1.1-6.1); Mean Corpuscular Hemoglobin 29.9 pg (28.0-33.3); Mean Corpuscular Volume 93.2 fL (83.0-100.0); Mean Platelet Volume 10.8 fL (9.4-12.4); Nucleated Red Blood Cells 0.1 /100 WBC (0); Platelet Count 50 K/mcL (140-400); Red Blood Count 4.12 M/mcL (4.19-5.50)
[2020-01-22 05:44] LABS: Calcium 7.8 mg/dL (8.6-10.3); Potassium 5.1 mEq/L (3.5-5.1)
[2020-01-22 05:55] LABS: Lymphocytes # 1.5 K/mcL (0.6-4.6); Monocytes # 0.7 K/mcL (0.0-1.3)
[2020-01-22 05:56] LABS: Burr Cells 1+ (Not Present); Platelet Estimate Decreased (Normal)
[2020-01-22] MEDS: D5% in 0.9% NACL 1,000 ML IVC SCH ×2 (06:26→09:07)
[2020-01-22] MEDS ORDERED: Ringers Solution, Lactated 1,000 ML IVC ONE (07:50)
[2020-01-22] MEDS ORDERED: cefTRIAXone 2,000 MG in Water for inj. (sterile) 20 ML IVP SCH (08:00)
[2020-01-22] MEDS: Aspirin Enteric Coated 81 MG Tablet PO SCH (09:07)
[2020-01-22] MEDS ORDERED: Aminoglycoside Consult 1 EACH MC ONE (09:25)
[2020-01-22 09:41] LABS: ABG Base Excess -6 mEq/L (-2 to 3); ABG HCO3 22 mEq/L (21-27); ABG Oxygen Saturation 97 % (95-98); ABG PCO2 53 mmHg (35-45); ABG PH 7.24 pH Units (7.32-7.45); ABG PO2 107 mmHg (85-104); ABG TCO2 24 mEq/L (20-26)
[2020-01-22] MEDS: Dexmedetomidine HCl 400 MCG/100 ML MLS IVC SCH (11:00)
[2020-01-22] MEDS: FentaNYL (PF) 1,000 MCG in 0.9 % Sodium Chloride 80 ML IVC SCH ×2 (11:00→16:49)
[2020-01-22 12:15] LABS: ABG Base Excess -6 mEq/L (-2 to 3); ABG HCO3 20 mEq/L (21-27); ABG Oxygen Saturation 100 % (95-98); ABG PCO2 41 mmHg (35-45); ABG PO2 202 mmHg (85-104); ABG TCO2 21 mEq/L (20-26); Blood Gas Modality ASSIST CONTROL; Blood Gas VT 500 cc
[2020-01-22] MEDS: Norepinephrine 4 MG in 0.9 % Sodium Chloride 250 ML IVC SCH ×2 (14:08→16:50)
[2020-01-22] MEDS ORDERED: *HR* Succinylcholine 200 MG/10 ML VIAL IVP ONE (14:41)
[2020-01-22] MEDS ORDERED: *HR* Midazolam HCl 5 MG/5 ML VIAL IVP ONE (14:41)
[2020-01-22] MEDS ORDERED: Lidocaine 2% Syringe 100 MG/5 ML IV ONE (14:41)
[2020-01-22] MEDS ORDERED: *HR* Rocuronium Bromide 100 MG/10 ML VIAL IVC ONE (14:41)
[2020-01-22] MEDS ORDERED: *HR* Propofol 200 MG/20 ML VIAL IVP ONE (14:41)
[2020-01-22] MEDS: MetroNIDAZOLE 500 MG/100 ML 500 MG/100 ML BAG IVPB SCH ×2 (15:56→23:45)
[2020-01-22] MEDS: Cefepime HCl 1,000 MG in Water for inj. (sterile) 10 ML IVP SCH (16:48)
[2020-01-22 17:57] LABS: Albumin/Globulin Ratio 1.3 (1.1-2.2); Bilirubin,Direct 2.6 mg/dL (0.0-0.2); Bilirubin,Indirect 1.3 mg/dL (0.0-1.0); Bilirubin,Total 3.9 mg/dL (0.3-1.0); Globulin 2.3 g/dL (2.4-3.5); Total Protein 5.3 g/dL (6.4-8.9)
[2020-01-23] MEDS: FentaNYL (PF) 1,000 MCG in 0.9 % Sodium Chloride 80 ML IVC SCH ×4 (02:36→20:55)
[2020-01-23 04:27] LABS: Eosinophils % 0.9 %; Red Cell Distribution Width 14.5 % (11.5-14.5)
[2020-01-23 04:28] LABS: Basophils % 0.3 %; Eosinophils # 0.1 K/mcL (0.0-0.6); Hematocrit 34.5 % (37.5-50.1); Hemoglobin 11.3 g/dL (12.9-16.9); Immature Granulocytes % 0.6 % (0-4); Immature Platelets 3.7 % (1.1-6.1); Lymphocytes # 0.7 K/mcL (0.6-4.6); Lymphocytes % 6.1 %; Mean Corpuscular HGB Conc 32.8 g/dL (31.6-35.5); Mean Corpuscular Hemoglobin 30.1 pg (28.0-33.3); Mean Corpuscular Volume 91.8 fL (83.0-100.0); Mean Platelet Volume 10.7 fL (9.4-12.4); Monocytes # 0.4 K/mcL (0.0-1.3); Monocytes % 3.8 %; Neutrophils # 10.1 K/mcL (1.6-8.9); Red Blood Count 3.76 M/mcL (4.19-5.50); Segmented Neutrophils % 88.3 %; White Blood Count 11.4 K/mcL (4.3-11.1)
[2020-01-23 04:39] LABS: Platelet Count 59 K/mcL (140-400)
[2020-01-23] MEDS: Cefepime HCl 1,000 MG in Water for inj. (sterile) 10 ML IVP SCH ×2 (04:41→17:17)
[2020-01-23] MEDS: Artificial Tears SOLN 15 ML BOTTLE BOTH EYES SCH ×6 (04:41→23:33)
[2020-01-23 04:48] LABS: Calcium 7.7 mg/dL (8.6-10.3); Potassium 4.7 mEq/L (3.5-5.1)
[2020-01-23 04:51] LABS: Albumin 2.7 g/dL (3.5-5.7); Albumin/Globulin Ratio 1.2 (1.1-2.2); Bilirubin,Total 3.5 mg/dL (0.3-1.0); Calcium 7.8 mg/dL (8.6-10.3); Globulin 2.3 g/dL (2.4-3.5); Potassium 4.8 mEq/L (3.5-5.1)
[2020-01-23 05:05] LABS: Platelet Estimate Marked Decrease (Normal)
[2020-01-23 05:41] LABS: ABG Base Excess -2 mEq/L (-2 to 3); ABG HCO3 23 mEq/L (21-27); ABG Oxygen Saturation 93 % (95-98); ABG PCO2 37 mmHg (35-45); ABG PO2 66 mmHg (85-104); ABG TCO2 24 mEq/L (20-26); Blood Gas Modality AF; Blood Gas VT 500 cc
[2020-01-23] MEDS: Aspirin Enteric Coated 81 MG Tablet PO SCH (07:34)
[2020-01-23] MEDS: Dexmedetomidine HCl 400 MCG/100 ML MLS IVC SCH (08:11)
[2020-01-23] MEDS: MetroNIDAZOLE 500 MG/100 ML 500 MG/100 ML BAG IVPB SCH ×3 (08:19→23:33)
[2020-01-23] MEDS ORDERED: *HR* Dextrose 50 % in Water (Syg) 50 ML SYRINGE IVP ONE ×2 (08:55→17:38)
[2020-01-23] MEDS ORDERED: Chlorhexidine Rinse 15 ML MOUTHWASH MM SCH (09:00)
[2020-01-23] MEDS: Pantoprazole 40 MG VIAL IVP SCH (11:30)
[2020-01-23 12:06] LABS: ABG Base Excess -3 mEq/L (-2 to 3); ABG HCO3 23 mEq/L (21-27); ABG Oxygen Saturation 96 % (95-98); ABG PCO2 45 mmHg (35-45); ABG PH 7.32 pH Units (7.32-7.45); ABG PO2 86 mmHg (85-104); ABG TCO2 25 mEq/L (20-26); Blood Gas Modality ASSIST CONTROL; Blood Gas VT 500 cc
[2020-01-23] MEDS: Chlorhexidine Rinse 15 ML MOUTHWASH MM SCH ×2 (12:30→20:55)
[2020-01-23] MEDS ORDERED: *HR* Dextrose 50 % in Water (Syg) 50 ML SYRINGE IVP PRN (21:09)
[2020-01-24] MEDS: Artificial Tears SOLN 15 ML BOTTLE BOTH EYES SCH ×5 (04:15→19:35)
[2020-01-24] MEDS: FentaNYL (PF) 1,000 MCG in 0.9 % Sodium Chloride 80 ML IVC SCH ×4 (04:16→22:50)
[2020-01-24] MEDS: Cefepime HCl 1,000 MG in Water for inj. (sterile) 10 ML IVP SCH ×2 (05:28→18:12)
[2020-01-24 06:16] LABS: ABG Base Excess -3 mEq/L (-2 to 3); ABG HCO3 24 mEq/L (21-27); ABG Oxygen Saturation 94 % (95-98); ABG PCO2 46 mmHg (35-45); ABG PH 7.32 pH Units (7.32-7.45); ABG PO2 79 mmHg (85-104); ABG TCO2 25 mEq/L (20-26); Blood Gas Modality ASSIST CONTROL; Blood Gas VT 500 cc
[2020-01-24] MEDS: Aspirin Enteric Coated 81 MG Tablet PO SCH (07:39)
[2020-01-24] MEDS: Pantoprazole 40 MG VIAL IVP SCH (08:45)
[2020-01-24] MEDS: Chlorhexidine Rinse 15 ML MOUTHWASH MM SCH ×2 (08:45→19:35)
[2020-01-24] MEDS: MetroNIDAZOLE 500 MG/100 ML 500 MG/100 ML BAG IVPB SCH ×3 (08:45→23:42)
[2020-01-24] MEDS: Dexmedetomidine HCl 400 MCG/100 ML MLS IVC SCH ×3 (08:48→23:34)
[2020-01-24] MEDS: Norepinephrine 4 MG in 0.9 % Sodium Chloride 250 ML IVC SCH (11:59)
[2020-01-24] MEDS ORDERED: *HR* Alteplase (Cathflo) 2 MG VIAL IVP PRN (12:18)
[2020-01-24 13:23] LABS: Mean Platelet Volume 10.9 fL (9.4-12.4)
[2020-01-24 13:25] LABS: Basophils # 0.1 K/mcL (0.0-0.2); Basophils % 0.6 %; Eosinophils # 0.2 K/mcL (0.0-0.6); Hematocrit 42.3 % (37.5-50.1); Hemoglobin 13.2 g/dL (12.9-16.9); Immature Granulocytes % 1.6 % (0-4); Immature Platelets 4.9 % (1.1-6.1); Lymphocytes # 0.7 K/mcL (0.6-4.6); Lymphocytes % 8.5 %; Mean Corpuscular HGB Conc 31.2 g/dL (31.6-35.5); Mean Corpuscular Hemoglobin 29.5 pg (28.0-33.3); Mean Corpuscular Volume 94.6 fL (83.0-100.0); Monocytes % 12.2 %; Nucleated Red Blood Cells 0.2 /100 WBC (0); Platelet Count 69 K/mcL (140-400); Red Blood Count 4.47 M/mcL (4.19-5.50); Red Cell Distribution Width 14.9 % (11.5-14.5); Segmented Neutrophils % 74.1 %; White Blood Count 8.1 K/mcL (4.3-11.1)
[2020-01-24 17:48] LABS: Albumin 3.3 g/dL (3.5-5.7); Albumin/Globulin Ratio 1.1 (1.1-2.2); Bilirubin,Total 2.1 mg/dL (0.3-1.0); Calcium 8.4 mg/dL (8.6-10.3); Globulin 2.9 g/dL (2.4-3.5); Magnesium 2.6 mg/dL (1.6-2.6); Phosphorous 4.8 mg/dL (2.7-4.5); Potassium 5.1 mEq/L (3.5-5.1); Total Protein 6.2 g/dL (6.4-8.9)
[2020-01-24] MEDS ORDERED: 0.9 % Sodium Chloride 1,000 ML ONE (18:07)
[2020-01-25] MEDS: FentaNYL (PF) 1,000 MCG in 0.9 % Sodium Chloride 80 ML IVC SCH ×2 (02:48→09:41)
[2020-01-25] MEDS: Artificial Tears SOLN 15 ML BOTTLE BOTH EYES SCH ×7 (04:34→23:27)
[2020-01-25 04:38] LABS: Mean Platelet Volume 10.8 fL (9.4-12.4)
[2020-01-25 04:40] LABS: Basophils % 0.4 %; Eosinophils # 0.3 K/mcL (0.0-0.6); Eosinophils % 4.1 %; Hematocrit 36.8 % (37.5-50.1); Hemoglobin 11.7 g/dL (12.9-16.9); Immature Granulocytes % 2.1 % (0-4); Immature Platelets 4.4 % (1.1-6.1); Lymphocytes % 8.4 %; Mean Corpuscular HGB Conc 31.8 g/dL (31.6-35.5); Mean Corpuscular Hemoglobin 30.6 pg (28.0-33.3); Mean Corpuscular Volume 96.3 fL (83.0-100.0); Monocytes # 0.9 K/mcL (0.0-1.3); Monocytes % 11.1 %; Neutrophils # 5.7 K/mcL (1.6-8.9); Red Blood Count 3.82 M/mcL (4.19-5.50); Red Cell Distribution Width 15.3 % (11.5-14.5); Segmented Neutrophils % 73.9 %; White Blood Count 7.7 K/mcL (4.3-11.1)
[2020-01-25 04:47] LABS: Lymphocytes # 0.7 K/mcL (0.6-4.6); Platelet Count 59 K/mcL (140-400)
[2020-01-25 04:58] LABS: Albumin 2.8 g/dL (3.5-5.7); Albumin/Globulin Ratio 1.3 (1.1-2.2); Bilirubin,Total 1.5 mg/dL (0.3-1.0); Calcium 8.1 mg/dL (8.6-10.3); Globulin 2.2 g/dL (2.4-3.5); Magnesium 2.7 mg/dL (1.6-2.6); Phosphorous 5.4 mg/dL (2.7-4.5); Potassium 5.4 mEq/L (3.5-5.1)
[2020-01-25 05:29] LABS: ABG Base Excess -5 mEq/L (-2 to 3); ABG HCO3 23 mEq/L (21-27); ABG Oxygen Saturation 95 % (95-98); ABG PCO2 51 mmHg (35-45); ABG PH 7.26 pH Units (7.32-7.45); ABG PO2 86 mmHg (85-104); ABG TCO2 24 mEq/L (20-26); Blood Gas Modality ASSIST CONTROL; Blood Gas VT 500 cc
[2020-01-25] MEDS: Cefepime HCl 1,000 MG in Water for inj. (sterile) 10 ML IVP SCH ×2 (06:15→17:20)
[2020-01-25] MEDS: MetroNIDAZOLE 500 MG/100 ML 500 MG/100 ML BAG IVPB SCH ×2 (09:23→17:22)
[2020-01-25] MEDS: Dexmedetomidine HCl 400 MCG/100 ML MLS IVC SCH (09:23)
[2020-01-25] MEDS: Chlorhexidine Rinse 15 ML MOUTHWASH MM SCH ×2 (09:24→20:03)
[2020-01-25] MEDS: Pantoprazole 40 MG VIAL IVP SCH (09:24)
[2020-01-25] MEDS: Aspirin Enteric Coated 81 MG Tablet PO SCH (10:26)
[2020-01-25] MEDS: Norepinephrine 4 MG in 0.9 % Sodium Chloride 250 ML IVC SCH (10:26)
[2020-01-25] MEDS ORDERED: Furosemide 40 MG/4 ML VIAL IVP ONE (10:46)
[2020-01-25] MEDS: *HR* Metoprolol 5 MG/5 ML VIAL IVP PRN (17:19)
[2020-01-25 19:35] LABS: Hematocrit 40.9 % (37.5-50.1); Hemoglobin 12.9 g/dL (12.9-16.9)
[2020-01-26] MEDS: MetroNIDAZOLE 500 MG/100 ML 500 MG/100 ML BAG IVPB SCH ×2 (00:19→07:33)
[2020-01-26] MEDS: Artificial Tears SOLN 15 ML BOTTLE BOTH EYES SCH ×3 (04:16→11:27)
[2020-01-26 05:28] LABS: Basophils % 0.5 %; Mean Corpuscular Volume 93.4 fL (83.0-100.0)
[2020-01-26 05:30] LABS: Basophils # 0.1 K/mcL (0.0-0.2); Eosinophils # 0.1 K/mcL (0.0-0.6); Eosinophils % 0.7 %; Hematocrit 41.1 % (37.5-50.1); Hemoglobin 13.1 g/dL (12.9-16.9); Immature Granulocytes % 1.8 % (0-4); Immature Platelets 4.7 % (1.1-6.1); Lymphocytes % 7.5 %; Mean Corpuscular HGB Conc 31.9 g/dL (31.6-35.5); Mean Corpuscular Hemoglobin 29.8 pg (28.0-33.3); Mean Platelet Volume 10.8 fL (9.4-12.4); Monocytes # 1.2 K/mcL (0.0-1.3); Monocytes % 9.4 %; Neutrophils # 10.3 K/mcL (1.6-8.9); Red Cell Distribution Width 14.8 % (11.5-14.5); Segmented Neutrophils % 80.1 %; White Blood Count 12.9 K/mcL (4.3-11.1)
[2020-01-26 05:38] LABS: Platelet Count 77 K/mcL (140-400)
[2020-01-26 05:46] LABS: Calcium 9.1 mg/dL (8.6-10.3); Magnesium 2.5 mg/dL (1.6-2.6); Potassium 4.7 mEq/L (3.5-5.1)
[2020-01-26] MEDS: Cefepime HCl 1,000 MG in Water for inj. (sterile) 10 ML IVP SCH ×2 (06:09→18:03)
[2020-01-26] MEDS ORDERED: Furosemide 40 MG/4 ML VIAL IVP ONE (08:35)
[2020-01-26] MEDS: Pantoprazole 40 MG VIAL IVP SCH (09:12)
[2020-01-26] MEDS: Chlorhexidine Rinse 15 ML MOUTHWASH MM SCH (09:13)
[2020-01-26] MEDS: Aspirin Enteric Coated 81 MG Tablet PO SCH (09:14)
[2020-01-26] MEDS: *HR* Metoprolol 5 MG/5 ML VIAL IVP PRN ×2 (09:38→21:09)
[2020-01-26] MEDS: Norepinephrine 4 MG in 0.9 % Sodium Chloride 250 ML IVC SCH (11:28)
[2020-01-26] MEDS ORDERED: Acetaminophen 325 MG TABLET PO PRN (13:38)
[2020-01-26] MEDS ORDERED: Ondansetron 4 MG/2 ML VIAL IVP PRN (13:38)
[2020-01-26] MEDS ORDERED: *HR* Dextrose 50 % in Water (Syg) 50 ML SYRINGE IVP PRN (13:38)
[2020-01-26] MEDS ORDERED: Naloxone 0.4 MG/ML INJ IVP PRN (13:38)
[2020-01-26] MEDS ORDERED: *HR* Alteplase (Cathflo) 2 MG VIAL IVP PRN (13:38)
[2020-01-26] MEDS ORDERED: MetroNIDAZOLE 500 MG/100 ML 500 MG/100 ML BAG IVPB SCH (16:00)
[2020-01-26] MEDS: metroNIDAZOLE 500 MG TABLET PO SCH ×2 (16:36→23:27)
[2020-01-26] MEDS ORDERED: Cefepime HCl 1,000 MG in Water for inj. (sterile) 10 ML IVP SCH (18:00)
[2020-01-27] MEDS: Cefepime HCl 1,000 MG in Water for inj. (sterile) 10 ML IVP SCH (05:58)
[2020-01-27 06:55] LABS: Hematocrit 43.6 % (37.5-50.1); Mean Corpuscular HGB Conc 32.1 g/dL (31.6-35.5); Mean Corpuscular Hemoglobin 29.5 pg (28.0-33.3); Mean Platelet Volume 10.4 fL (9.4-12.4); Platelet Count 132 K/mcL (140-400); Red Blood Count 4.74 M/mcL (4.19-5.50); Red Cell Distribution Width 14.6 % (11.5-14.5); White Blood Count 13.5 K/mcL (4.3-11.1)
[2020-01-27 07:25] LABS: Magnesium 2.5 mg/dL (1.6-2.6); Phosphorous 3.8 mg/dL (2.7-4.5); Potassium 4.4 mEq/L (3.5-5.1)
[2020-01-27 07:26] LABS: Albumin 3.6 g/dL (3.5-5.7); Albumin/Globulin Ratio 1.2 (1.1-2.2); Bilirubin,Direct 0.8 mg/dL (0.0-0.2); Bilirubin,Indirect 1.2 mg/dL (0.0-1.0); Globulin 3.1 g/dL (2.4-3.5); Total Protein 6.7 g/dL (6.4-8.9)
[2020-01-27] MEDS: cefTRIAXone 2,000 MG in Water for inj. (sterile) 20 ML IVP SCH (08:32)
[2020-01-27] MEDS: metroNIDAZOLE 500 MG TABLET PO SCH (08:32)
[2020-01-27] MEDS: lisinopriL 5 MG TABLET PO SCH (08:32)
[2020-01-27] MEDS: Aspirin Enteric Coated 81 MG Tablet PO SCH (08:32)
[2020-01-27] MEDS ORDERED: Pantoprazole 40 MG VIAL IVP SCH (09:00)
[2020-01-27] MEDS ORDERED: lisinopriL 5 MG TABLET PO SCH (09:00)
[2020-01-27] MEDS ORDERED: Metoprolol XL (24 HR) Succ 25 MG TAB.ER.24H PO SCH ×2 (09:00)
[2020-01-27] MEDS ORDERED: SODIUM ZIRCONIUM CYCLOSILICATE 5 GM POWD.PACK PO SCH (09:30)
[2020-01-27] MEDS ORDERED: Furosemide 40 MG/4 ML VIAL IVP ONE (14:49)
[2020-01-27] MEDS: carvediloL 25 MG TABLET PO SCH (17:03)
[2020-01-27] MEDS: *HR* Metoprolol 5 MG/5 ML VIAL IVP PRN (17:06)
[2020-01-27] MEDS: *HR* Heparin 5,000 UNIT/ML VIAL SQ SCH (21:54)
[2020-01-28 02:59] LABS: Basophils # 0.1 K/mcL (0.0-0.2); Basophils % 0.6 %; Eosinophils # 0.4 K/mcL (0.0-0.6); Eosinophils % 3.2 %; Hematocrit 41.1 % (37.5-50.1); Hemoglobin 13.1 g/dL (12.9-16.9); Immature Granulocytes % 1.9 % (0-4); Lymphocytes # 1.4 K/mcL (0.6-4.6); Lymphocytes % 11.7 %; Mean Corpuscular HGB Conc 31.9 g/dL (31.6-35.5); Mean Corpuscular Hemoglobin 29.4 pg (28.0-33.3); Mean Corpuscular Volume 92.4 fL (83.0-100.0); Mean Platelet Volume 10.4 fL (9.4-12.4); Monocytes # 1.1 K/mcL (0.0-1.3); Platelet Count 151 K/mcL (140-400); Red Blood Count 4.45 M/mcL (4.19-5.50); Red Cell Distribution Width 14.4 % (11.5-14.5); Segmented Neutrophils % 73.6 %; White Blood Count 12.2 K/mcL (4.3-11.1)
[2020-01-28 03:14] LABS: Albumin 3.4 g/dL (3.5-5.7); Albumin/Globulin Ratio 1.2 (1.1-2.2); Bilirubin,Total 1.7 mg/dL (0.3-1.0); Calcium 8.5 mg/dL (8.6-10.3); Globulin 2.8 g/dL (2.4-3.5); Potassium 4.2 mEq/L (3.5-5.1); Total Protein 6.2 g/dL (6.4-8.9)
[2020-01-28] MEDS: *HR* Heparin 5,000 UNIT/ML VIAL SQ SCH (05:56)
[2020-01-28] MEDS: Aspirin Enteric Coated 81 MG Tablet PO SCH (09:22)
[2020-01-28] MEDS: lisinopriL 5 MG TABLET PO SCH (09:23)
[2020-01-28] MEDS: carvediloL 25 MG TABLET PO SCH (09:24)
[2020-01-28] MEDS: cefTRIAXone 2,000 MG in Water for inj. (sterile) 20 ML IVP SCH (09:25)
[2020-01-28 10:37] VITALS: BP 139/80
== END 2020-01-28 12:35 | disposition home or self-care (01) | DRG 853 ==
LOC: 3ANU 22:40 → EMEROOARM 22:40 → SUATTDRO 01-20 00:47 → 3ANU 01-20 01:22 → SUATTDRO 01-20 10:52 → 2NENU 01-20 13:45 → 2NNU 01-20 17:05 → ICNU 01-24 14:31 → 2ANU 01-26 15:05
PROVIDERS: ADMIT Family Medicine; ATTEND Internal Medicine